=== PATIENT | female | born 1955 | race Hispanic/Latino ===

== ENCOUNTER 2018-04-15 16:31 | Emergency (ER) | payer OTHER ==
[2018-04-15 20:32] LABS: Absolute Lymphocytes (CBC) 0.9 K/uL (0.7-4.9); Absolute Neutrophil 3.6 K/uL (1.8-8.0); Basophils % 0.5 % (0-1.3); Eosinophils % 0.2 % (0-4.4); Hematocrit 40.5 % (36.0-45.0); Lymphocytes % 16.6 % (15.3-44.8); MCH 36.6 pg (27.0-35.0); MCV 105.3 fL (80-100); Monocytes % 17.9 % (3.3-12.3); RBC Red Blood Cell Count 3.84 M/uL (3.86-4.86)
[2018-04-15 20:40] LABS: BUN Blood Urea Nitrogen 12 mg/dL (7-18); Bicarbonate 26 mmol/L (21-32); Glucose Level 103 mg/dL (74-106); Potassium 3.9 mmol/L (3.5-5.1); Sodium Level 136 mmol/L (136-145)
[2018-04-15 20:56] LABS: Blood Morphology Comment NOTED (NOT SEEN); Macrocytosis 1+; Platelet Estimate ADEQ
--- NOTE | 2018-04-15 21:24 | ER ---
Nurse's Notes [facility] Name: Ryland Saez Age: 62 yrs Sex: Female : 1955 Arrival Date: 04/15/2018 Time: 16:36 Bed 24 Private MD: Out, [facility] Diagnosis: Hemorrhoids Presentation: 04/15 16:40 Presenting complaint: Patient states: Bright red blood from rectum after each bowel hb movent x 1 month. Transition of care: patient was not received from another setting of care. Onset of symptoms is unknown. Risk Assessment: Do you want to hurt yourself or someone else? Patient reports no desire to harm self or others. 16:40 Method Of Arrival: Ambulatory hb 16:40 Acuity: MARIN 3 hb 21:35 Initial Sepsis Screen: Does the patient meet any 2 criteria? No. Patient's initial rv sepsis screen is negative. Does the patient have a suspected source of infection? No. Patient's initial sepsis screen is negative. Care prior to arrival: None. Historical: - Allergies: 16:42 No Known Allergies; hb - Home Meds: 16:43 Diuril Oral [Active]; hb - PMHx: 16:43 Hypertension; hb - Immunization history:: Adult Immunizations up to date. - Social history:: Smoking status: Patient/guardian denies using tobacco. - Ebola Screening: : No symptoms or risks identified at this time. Screenin:49 Abuse screen: Denies threats or abuse. Denies injuries from another. Nutritional aj1 screening: No deficits noted. Tuberculosis screening: No symptoms or risk factors identified. 21:37 Fall Risk None identified. rv Assessment: 18:49 General: Appears in no apparent distress. comfortable, Behavior is calm, cooperative, aj1 appropriate for age. Pain: Denies pain. Neuro: Level of Consciousness is awake, alert, obeys commands. Cardiovascular: Patient's skin is warm and dry. Respiratory: Airway is patent Respiratory effort is even, unlabored, Respiratory pattern is regular, symmetrical. GI: Abdomen is flat, non-distended, Abd is soft and non tender X 4 quads. Reports rectal bleeding that she describes as light for the past several months. : No signs and/or symptoms were reported regarding the genitourinary system. EENT: No signs and/or symptoms were reported regarding the EENT system. Derm: No signs and/or symptoms reported regarding the dermatologic system. Skin is pink, warm \T\ dry. normal. Musculoskeletal: No signs and/or symptoms reported regarding the musculoskeletal system. Circulation, motion, and sensation intact. Vital Signs: 16:41 BP 187 / 97; Pulse 74; Resp 16; Temp 97.8; Pulse Ox 100% on R/A; Pain 2/10; hb ED Course: 16:36 Patient arrived in ED. sb2 16:36 Out, of Town is Private Physician. sb2 16:41 Triage completed. hb 16:43 Arm band placed on right wrist. hb 18:13 Elyssa Mazariegos, RN is Primary Nurse. aj1 18:29 Issac Mondragon NP is PHCP. pm1 18:29 Marcos Sanchez MD is Attending Physician. pm1 18:49 Patient has correct armband on for positive identification. Bed in low position. Call aj1 light in reach. Side rails up X 1. 18:49 No provider procedures requiring assistance completed. aj1 20:32 Initial lab(s) drawn, by me, sent to lab. rv 21:37 Patient did not have IV access during this emergency room visit. rv Administered Medications: No medications were administered Outcome: 21:24 Discharge ordered by . pm1 21:36 Discharged to home ambulatory. rv 21:36 Condition: good 21:36 Discharge instructions given to patient, Instructed on discharge instructions, follow up and referral plans. medication usage, Demonstrated understanding of instructions, follow-up care, medications, Prescriptions given X 2. 21:37 Patient left the ED. rv Signatures: Elyssa Mazariegos, ANDRADE RN aj Issac Mondragon NP NURSE INFORMATICIST pm1 Alexia Lopez RN RN Sandra Sheehan sb2 Jovon Murphy RN RN rv
--- NOTE | 2018-04-15 21:25 | EDPHYS ---
Physician Documentation [facility] Name: Ryland Young Age: 62 yrs Sex: Female : 1955 Arrival Date: 04/15/2018 Time: 16:36 Bed 24 Private MD: Out, [facility] ED Physician Marcos Sanchez HPI: 04/15 21:23 This 62 yrs old Female presents to ER via Ambulatory with complaints of Rectal pm1 Bleeding. 21:23 The patient presents to the emergency department with bleeding from the rectum/anus, pm1 that is mild. Onset: The symptoms/episode began/occurred 3 month(s) ago. Context: the patient traces of blood present on toilet paper with some bowel movements over the past 3 months. Modifying factors: The symptoms are alleviated by nothing, The symptoms are aggravated by bowel movement. Associate signs and symptoms: Pertinent negatives: abdominal pain, constipation, diarrhea, dysuria, fever, vomiting. The patient has not recently seen a physician. Patient denies any pain. Has blood on toilet paper with wiping after some of bowel movements over the past 3 months. No blood present on the stool or in the toilet. Patient denies any urinary symptoms. Patient was not concerned about the bleeding but came today because her sister wanted her to be evaluated. Historical: - Allergies: 16:42 No Known Allergies; hb - Home Meds: 16:43 Diuril Oral [Active]; hb - PMHx: 16:43 Hypertension; hb - Immunization history:: Adult Immunizations up to date. - Social history:: Smoking status: Patient/guardian denies using tobacco. - Ebola Screening: : No symptoms or risks identified at this time. ROS: 21:23 Constitutional: Negative for fever, chills, and weight loss, Eyes: Negative for injury, pm1 pain, redness, and discharge, ENT: Negative for injury, pain, and discharge, Neck: Negative for injury, pain, and swelling, Cardiovascular: Negative for chest pain, palpitations, and edema, Respiratory: Negative for shortness of breath, cough, wheezing, and pleuritic chest pain. 21:23 Back: Negative for injury and pain, : Negative for injury, bleeding, discharge, and swelling, MS/Extremity: Negative for injury and deformity, Skin: Negative for injury, rash, and discoloration, Neuro: Negative for headache, weakness, numbness, tingling, and seizure. 21:23 Abdomen/GI: Positive for rectal bleeding, Negative for abdominal pain, nausea, vomiting, and diarrhea, constipation, hematemesis, black/tarry stool, rectal pain. Exam: 19:00 Constitutional: This is a well developed, well nourished patient who is awake, alert, pm1 and in no acute distress. Head/Face: Normocephalic, atraumatic. Eyes: Pupils equal round and reactive to light, extra-ocular motions intact. Lids and lashes normal. Conjunctiva and sclera are non-icteric and not injected. Cornea within normal limits. Periorbital areas with no swelling, redness, or edema. ENT: Nares patent. No nasal discharge, no septal abnormalities noted. Tympanic membranes are normal and external auditory canals are clear. Oropharynx with no redness, swelling, or masses, exudates, or evidence of obstruction, uvula midline. Mucous membranes moist. Neck: Trachea midline, no thyromegaly or masses palpated, and no cervical lymphadenopathy. Supple, full range of motion without nuchal rigidity, or vertebral point tenderness. No Meningismus. Chest/axilla: Normal chest wall appearance and motion. Nontender with no deformity. No lesions are appreciated. Cardiovascular: Regular rate and rhythm with a normal S1 and S2. No gallops, murmurs, or rubs. Normal PMI, no JVD. No pulse deficits. Respiratory: Lungs have equal breath sounds bilaterally, clear to auscultation and percussion. No rales, rhonchi or wheezes noted. No increased work of breathing, no retractions or nasal flaring. 19:00 Back: No spinal tenderness. No costovertebral tenderness. Full range of motion. Skin: Warm, dry with normal turgor. Normal color with no rashes, no lesions, and no evidence of cellulitis. MS/ Extremity: Pulses equal, no cyanosis. Neurovascular intact. Full, normal range of motion. 19:00 Abdomen/GI: Inspection: abdomen appears normal, Bowel sounds: normal, Palpation: abdomen is soft and non-tender, Rectal exam: rectal tone normal, Stool: guaiac negative, hemorrhoid(s), external, with inflammation, with pain, without bleeding, without inflammation, without thrombosis, mass, is not appreciated, swelling, is not appreciated, Patty ZAFAR. 19:00 Neuro: Orientation: is normal, Motor: is normal, moves all fours, Sensation: is normal, no obvious gross deficits, Gait: is steady, at a normal pace, without difficulty. Vital Signs: 16:41 BP 187 / 97; Pulse 74; Resp 16; Temp 97.8; Pulse Ox 100% on R/A; Pain 2/10; hb MDM: 18:36 Patient medically screened. pm1 21:23 Data reviewed: vital signs. Data interpreted: Pulse oximetry: on room air is 100 %. pm1 Interpretation: normal. Counseling: I had a detailed discussion with the patient and/or guardian regarding: the historical points, exam findings, and any diagnostic results supporting the discharge/admit diagnosis, lab results, the need for outpatient follow up, to return to the emergency department if symptoms worsen or persist or if there are any questions or concerns that arise at home. 04/15 19:41 Order name: CBC with Diff; Complete Time: 21:23 [facility] 04/15 19:41 Order name: BMP; Complete Time: 21:23 [facility] 04/15 20:35 Order name: Manual Differential; Complete Time: 21:23 EDMN Administered Medications: No medications were administered Disposition: 04/15/18 21:24 Discharged to Home. Impression: Hemorrhoids. - Condition is Stable. - Discharge Instructions: Hemorrhoids. - Prescriptions for Anusol- HC 2.5 % Rectal Cream - Apply to affected area 1 application by TOPICAL route every 8 hours As needed; 30 gram. Colace 100 mg Oral Tablet - take 1 tablet by ORAL route every 12 hours; 14 tablet. - Medication Reconciliation Form, Thank You Letter, Antibiotic Education, Prescription Opioid Use form. - Follow up: Emergency Department; When: As needed; Reason: Worsening of condition. Follow up: Private Physician; When: 2 - 3 days; Reason: Recheck today's complaints, Continuance of care, Re-evaluation by your physician. - Problem is new. - Symptoms have improved. Signatures: Dispatcher [employer] [facility] Issac Mondragon, STUDENT TRUCK DRIVER STUDENT TRUCK DRIVER pm1 Alexia Lopez, ANDRADE RN Jovon Murphy RN RN rv Corrections: (The following items were deleted from the chart) 20:35 20:34 CBC Smear Scan ordered. [facility] EDMS 21:37 21:24 04/15/2018 21:24 Discharged to Home. Impression: Hemorrhoids. Condition is rv Stable. Forms are Medication Reconciliation Form, Thank You Letter, Antibiotic Education, Prescription Opioid Use. Follow up: Emergency Department; When: As needed; Reason: Worsening of condition. Follow up: Private Physician; When: 2 - 3 days; Reason: Recheck today's complaints, Continuance of care, Re-evaluation by your physician. Problem is new. Symptoms have improved. pm1
== END 2018-04-15 21:37 | disposition home or self-care (01) ==
LOC: ER 16:31
DX: K64.9 Unspecified hemorrhoids (principal); I10 Essential (primary) hypertension
CPT/HCPCS: 36415; 80048; 85025; 99283

== ENCOUNTER 2021-03-11 19:45 | Inpatient (IN) | payer OTHER ==
--- OUTSIDE RECORDS SUMMARY | 2021-03-11 19:52 | XMS REPORT | Continuity of Care Document ---
:1955 Author Organization [facility] t Address [address] [place] [address] Care Team Providers Name Role Phone Arroyo DO Attending Clinician Problems Condition Condition Condition Status Onset Resolution Last Treating Co mments Source Name Details Category Date Date Treatment Clinician Date Osteopenia Osteopenia Problem Active [facility] 5-07 Family 00:00: Practic 00 e Liver Liver Problem Active [facility] function Function 1-08 Family tests Tests 00:00: Practic abnormal Abnormal 00 e Gastroesop Gastroesop Problem Active 2015-07 [facility] hageal hageal 117 Family reflux Reflux 00:00: Practic disease Disease 00 e Elevated Elevated Problem Active 2015-07 [facility] liver Liver 17 Family enzymes Enzymes 00:00: Practic level Level 00 e Hypertensi Hypertensi Problem Active 2014-07 [facility] ve ve 1-16 Family disorder Disorder 00:00: Practi c 00 e Mixed Mixed Problem Active [facility] hyperlipid Hyperlipid 3-12 Fa jeannine emia emia 00:00: Practic 00 e Allergic Allergic Problem Active [facility] rhinitis Rhinitis 08 Family 00:00: Practic 00 e Allergies, Adverse Reactions, Alerts This patient has no known allergies or adverse reactions. Social History Smoking Status Start Date Stop Date Source Former Smoker [place] [facility] [place] Medications Ordered Filled Start Stop Current Ordering Indication Dosage Frequency Signature Comments Components Source Medication Medication Date Date Medication? Clinician (SIG) Name Name escitalopra escitalopra No 1 Q1D escitalopr [place] m 20 mg m 20 mg am 20 mg Famil y tablet Take tablet Take tablet Practic 1 tablet 1 tablet Take 1 e every day every day tablet by oral by oral every day route for route for by oral 90 days. 90 days. route for 90 days. lisinopril lisinopril No lisinopril [facility] 10 mg 10 mg 10 mg Family tablet TAKE tablet TAKE tablet Practic 1 TABLET BY 1 TABLET BY TAKE 1 e MOUTH EVERY MOUTH EVERY TABLET BY DAY DAY MOUTH EVERY DAY Immunizations Ordered Immunization Filled Immunization Date Status Commen ts Source Name Name influenza, seasonal, influenza, seasonal, 2015-04-19 Completed [facility] injectable injectable 00:00:00 Practice influenza, influenza, 2015-04-14 Completed [facility] injectable, injectable, 00:00:00 Practice quadrivalent quadrivalent influenza, influenza, 2014-05-13 Completed [facility] injectable, injectable, 00:00:00 Practice quadrivalent, quadrivalent, preservative free preservative free Tdap Tdap 2014-05-13 Completed [facility] 00:00:00 Practice zoster zoster 2014-05-13 Completed [facility] 00:00:00 Practice Vital Signs Vital Name Observation Time Observation Value Comments Source BP Diastolic 2019-01-21 00:00:00 77 mm[Hg] [facility] Practice Height 2019-01-21 00:00:00 61 [in_i] [facility] Practice BMI (Body Mass 2019-01-21 00:00:00 16.5 kg/m2 [facility] Family Index) Practice BP Systolic 2019-01-21 00:00:00 113 mm[Hg] [facility] Body Weight 2019-01-21 00:00:00 87.2 [lb_av] [facility] Practice BP Diastolic 2018-12-05 00:00:00 64 mm[Hg] [facility] Practice Height 2018-12-05 00:00:00 61 [in_i] [facility] Practice BMI (Body Mass 2018-12-05 00:00:00 15.1 kg/m2 [facility] Family Index) Practice BP Systolic 2018-12-05 00:00:00 109 mm[Hg] [facility] Practice Body Weight 2018-12-05 00:00:00 80 [lb_av] [facility] Practice BP Diastolic 2018-12-02 00:00:00 74 mm[Hg] [facility] Height 2018-12-02 00:00:00 61 [in_i] [facility] Practice BMI (Body Mass 2018-12-02 00:00:00 15.2 kg/m2 [facility]) Practice BP Systolic 2018-12-02 00:00:00 114 mm[Hg] [facility] Body Weight 2018-12-02 00:00:00 80.2 [lb_av] [facility] Practice BP Diastolic 2018-09-05 00:00:00 74 mm[Hg] [facility] Practice Height 2018-09-05 00:00:00 61 [in_i] [facility] Practice BMI (Body Mass 2018-09-05 00:00:00 17.6 kg/m2 [facility] BP Systolic 2018-09-05 00:00:00 110 mm[Hg] [facility] Body Weight 2018-09-05 00:00:00 93 [lb_av] [facility] BP Diastolic 2018-08-28 00:00:00 81 mm[Hg] [facility] Height 2018-08-28 00:00:00 61 [in_i] [facility] BMI (Body Mass 2018-08-28 00:00:00 18.1 kg/m2 [facility] BP Systolic 2018-08-28 00:00:00 118 mm[Hg] [facility] Body Weight 2018-08-28 00:00:00 96 [lb_av] [facility] Procedures Procedure Date / Time Performed Performing Clinician [facility] e US, ABDOMINAL COMPLETE 2018-08-29 00:00:00 [facility] Hysterectomy (Total) 2011-11-11 00:00:00 [facility] Colonoscopy 2008-07-16 00:00:00 [facility] Hysterectomy (Partial) [facility] Breast Surgery [facility] Tonsillectomy [facility] Encounters Start End Encounter Admission Attending Care Care Encounter Source Date/Time Date/Time Type Type Clinicians Facility Department ID 2020-04-11 2020-04-11 Emergency [place], [facility] [id number] 19:27:00 22:35:00 Dawson Ibarra [id number] A[place] [id number] [place] [id number] 2019-01-21 2019-01-21 Hernandez Gee P [place] - [id number] [facility] 00:00:00 00:00:00 MD Martinez: [facility] [address] Practice [address], [facility] [address] , Ph. 2018-12-05 2018-12-05 [facility] [place] - [id number] [place] 00:00:00 00:00:00 Morgan Brizuela MD: Practi c [address] [facility] [place], [facility] [address], [place] [address] , Ph. 2018-12-02 2018-12-02 [facility] [place] - [id number] [place] 00:00:00 00:00:00 Morgan Brizuela MD: Practi c [address] - e [facility], [facility] [address], [place] [address] , Ph. 2018-11-24 2018-11-24 Emergency E [facility] [address] [facility] 16:10:00 16:10:00 [facility] 2018-09-05 2018-09-05 Paris Garcia [facility] [place] - [id number] V illage 00:00:00 00:00:00 MD Rashid: Jassi Kirkpatrick ly [address] [facility], [address], [facility] [address] , Ph. 2018-08-28 2018-08-28 Paris Garcia [facility] [place] - [id number] V illage 00:00:00 00:00:00 MD Rashid: [facility] Kaya ly [address] [facility], [address], [facility] [address] , Ph. Results Test Description Test Time Test Comments Results Result Comments Source CBC W Auto Differential panel - Blood 2018-08-29 12:05:00 Test Item Value Reference Range Interpretation Comme nts WBC (test code = WBC) 7.05 x10*3/?L 3.98-10.04 RBC (test code = RBC) 3.55 10*12/L 3.93-5.22 L hemoglobin (test code = hemoglobin) 13.20 g/dL 11.20-15.70 hematocrit (test code = hematocrit) 38.1 % 34.1-44.9 MCV (test code = MCV) 107.3 fL 80.0-100.0 H MCH (test code = MCH) 37.2 pg 25.6-32.2 H MCHC (test code = MCHC) 34.6 g/dL 32.2-35.5 RDW-SD (test code = RDW-SD) 47.7 fL 36.4-46.3 H platelet count (test code = platelet count) 319.0 k/uL 182.0-369. 0 MPV (test code = MPV) 10.7 fL 7.5-11.5 neut% (test code = neut%) 67.7 % 34.0-71.1 lymph% (test code = lymph%) 15.5 % 19.3-51.7 L mon% (test code = mon%) 16.3 % 4.7-12.5 H eos% (test code = eos%) 0.1 % 0.7-5.8 L baso% (test code = baso%) 0.4 % 0.1-1.2 neut# (test code = neut#) 4.8 x10*3/?L 1.6-6.1 lymph# (test code = lymph#) 1.1 x10*3/?L 1.2-3.7 L mon# (test code = mon#) 1.2 x10*3/?L 0.2-0.9 H eos# (test code = eos#) 0.01 x10*3/?L 0.04-0.36 L baso# (test code = baso#) 0.03 x10*3/?L 0.01-0.08 [facility] - Serum or Plasma 2018-08-29 11:53:00 Test Item Value Reference Range Interpretation Comments ALT (test code = ALT) 106 U/L 0-55 H AST (test code = AST) 133 U/L 5-34 H BUN (test code = BUN) 10.5 mg/dL 9.8-20.1 alk phos (test code = alk phos) 73 unit/L 40-150 glucose (test code = glucose) 92 mg/dL 70-99 albumin (test code = albumin) 4.0 g/dL 3.5-5.0 creatinine (test code = 0.68 mg/dL 0.57-1.11 creatinine) eGFR non- (test >60 code = eGFR non-) total bilirubin (test code = 1.7 mg/dL 0.2-1.2 H total bilirubin) eGFR - (test >60 code = eGFR - ) sodium (test code = sodium) 135 mEq/L 136-145 L potassium (test code = potassium) 4.3 mEq/L 3.5-5.1 chloride (test code = chloride) 96 mmol/L 98-107 L total protein (test code = total 7.4 g/dL 6.4-8.3 protein) calcium (test code = calcium) 10.1 mg/dL 8.4-10.2 CO2 (test code = CO2) 24.6 mmol/L 23.0-31.0 anion gap (test code = anion gap) 14 calc [facility]Units/volume] in Serum or [id number] 11:47:00 Test Item Value Reference Range Interpretation Comments TSH (test code = TSH) 2.354 uIU/mL 0.350-4.940 [facility]
--- NOTE | 2021-03-11 20:27 | RAD REPORT ---
EXAM DESCRIPTION: RAD - Shoulder Right 2 View - 03/11/2021 8:19 pm CLINICAL HISTORY: Right shoulder pain FINDINGS: Moderately displaced right humeral neck fracture extends to the lateral aspect of humeral head. No dislocation
--- NOTE | 2021-03-11 20:28 | RAD REPORT ---
EXAM DESCRIPTION: RAD - Humerus Right - 03/11/2021 8:19 pm CLINICAL HISTORY: Right arm pain status post fall FINDINGS: Moderately displaced right humeral neck fracture extends to the lateral aspect of humeral head. No dislocation
--- NOTE | 2021-03-11 20:32 | RAD REPORT ---
EXAM DESCRIPTION: RAD - Hip Right 2 View - 03/11/2021 8:19 pm CLINICAL HISTORY: Right hip pain FINDINGS: Mildly to moderately displaced intertrochanteric/greater trochanteric fracture right femur. No dislocation
--- NOTE | 2021-03-11 20:32 | RAD REPORT ---
EXAM DESCRIPTION: RAD - Pelvis - 03/11/2021 8:19 pm CLINICAL HISTORY: Pelvic pain status post injury FINDINGS: Mildly to moderately displaced intertrochanteric/greater trochanteric fracture right femur . No dislocation
[2021-03-11 20:42] LABS: Absolute Lymphocytes (CBC) 0.5 K/uL (0.7-4.9); Basophils % 0.2 % (0-1.3); Hematocrit 33.6 % (36.0-45.0); Lymphocytes % 4.6 % (15.3-44.8); MPV 7.4 fL (7.6-11.3); RBC Red Blood Cell Count 3.03 M/uL (3.86-4.86)
[2021-03-11 20:46] LABS: Protime INR 1.04
--- NOTE | 2021-03-11 20:58 | EDPHYS ---
Physician Documentation [facility] Name: Ryland Saez Age: 65 yrs Sex: Female : 1955 Arrival Date: 03/11/2021 Time: 19:50 Bed 24 Private MD: ED Physician Víctor Bernard HPI: 03/11 19:58 This 65 yrs old Female presents to ER via EMS with complaints of Fall Injury. rn 19:58 Onset: The symptoms/episode began/occurred this morning. Associated injuries: The rn patient sustained Right arm and right leg. Severity of symptoms: At their worst the symptoms were moderate, in the emergency department the symptoms are unchanged. The patient has not experienced similar symptoms in the past. The patient has not recently seen a physician. Patient reports thinks fell this morning, does not recall details of fall. States woke up around 930 and thinks fell around that time. Thinks possibly hit foot board of bed. States difficulty getting up and walking after the fall due to pain in the leg and pain in the right arm. Does not take any blood thinners. Had to call family member over to help her.. Historical: - Allergies: 20:02 No Known Allergies; vg1 - Home Meds: 20:02 escitalopram oxalate oral [Active]; Lexapro Oral [Active]; Metoprolol Tartrate Oral vg1 [Active]; - PMHx: 20:02 Hypertension; Depressive disorder; vg1 - Immunization history:: Adult Immunizations up to date, Client reports receiving the 2nd dose of the Covid vaccine. - Family history:: not pertinent. - Social history:: Smoking status: Patient denies any tobacco usage or history of. - Hospitalizations: : No recent hospitalization is reported. ROS: 20:00 Constitutional: Negative for fever, chills, and weight loss, Eyes: Negative for injury, rn pain, redness, and discharge, Neck: Negative for injury, pain, and swelling, Cardiovascular: Negative for chest pain, palpitations, and edema, Respiratory: Negative for shortness of breath, cough, wheezing, and pleuritic chest pain, Abdomen/GI: Negative for abdominal pain, nausea, vomiting, diarrhea, and constipation, Back: Negative for injury and pain, : Negative for injury, bleeding, discharge, and swelling, MS/Extremity: Positive for injury and pain to right arm and right leg Skin: Positive for bruising to right upper arm Neuro: Negative for headache, weakness, numbness, tingling, and seizure. 20:00 All other systems are negative. Exam: 20:01 Constitutional: This is a well developed, well nourished patient who is awake, alert, rn appears uncomfortable Head/Face: Normocephalic, atraumatic. Eyes: Pupils equal round and reactive to light, extra-ocular motions intact. Lids and lashes normal. Conjunctiva and sclera are non-icteric and not injected. Cornea within normal limits. Periorbital areas with no swelling, redness, or edema. Neck: No midline cervical tenderness Chest/axilla: Normal chest wall appearance and motion. Nontender with no deformity. No lesions are appreciated. Cardiovascular: Regular rate and rhythm. No pulse deficits. Respiratory: No increased work of breathing, no retractions or nasal flaring. Abdomen/GI: Soft, nontender, nondistended Back: No spinal tenderness. No costovertebral tenderness. Full range of motion. Skin: Warm, dry with normal turgor. Normal color with no rashes, no lesions, and no evidence of cellulitis. MS/ Extremity: Pulses equal, no cyanosis. Moderate swelling and ecchymosis right proximal humerus with painful range of motion of right shoulder. Moderate pain with range of motion of right hip with tenderness along proximal femur and hip, right lower extremity externally rotated and patient not moving it due to pain. Free range of motion left leg and hip without obvious pain. Neuro: Awake and alert, GCS 15, oriented to person, place, time, and situation. Cranial nerves II-XII grossly intact. Motor strength 5/5 in all extremities. Sensory grossly intact. Cerebellar exam normal. Normal gait. Vital Signs: 19:40 BP 165 / 95; Pulse 95; Resp 20; Temp 98.3; Pulse Ox 100% ; Weight 49.9 kg; Height 5 ft. vg1 1 in. (154.94 cm); Pain 10/10; 20:40 BP 160 / 92; Pulse 98; Resp 16; Pulse Ox 98% on R/A; vg1 19:40 Body Mass Index 20.78 (49.90 kg, 154.94 cm) vg1 Allison Coma Score: 19:40 Eye Response: spontaneous(4). Verbal Response: oriented(5). Motor Response: obeys vg1 commands(6). Total: 15. Trauma Score (Adult): 19:40 Eye Response: spontaneous(1); Verbal Response: oriented(1); Motor Response: obeys vg1 commands(2); Systolic BP: > 89 mm Hg(4); Respiratory Rate: 10 to 29 per min(4); Allison Score: 15; Trauma Score: 12 MDM: 19:50 Patient medically screened. rn 20:49 Differential diagnosis: closed head injury, contusion, fracture, sprain, strain. rn 20:55 Data reviewed: vital signs, nurses notes, lab test result(s), EKG, radiologic studies, rn plain films, and as a result, I will admit patient. Data interpreted: shelter monitor: rate is 98 beats/min, rhythm is normal sinus rhythm, regular, with no ectopy, Interpretation: normal rate, normal rhythm, Pulse oximetry: on room air is 98 %. Interpretation: normal. Test interpretation: by ED physician or midlevel provider: plain radiologic studies, X-ray of right humerus shows proximal humeral fracture. X-ray of right hip shows intertrochanteric fracture of right femur. Counseling: I had a detailed discussion with the patient and/or guardian regarding: the historical points, exam findings, and any diagnostic results supporting the discharge/admit diagnosis, lab results, radiology results, the need for further work-up and treatment in the hospital. Response to treatment: the patient's symptoms have mildly improved after treatment, and as a result, I will admit patient. Admission orders: after a detailed discussion of the patient's condition and case, the admit orders are written by me. ED course: Patient with right proximal humeral fracture, placed in a shoulder immobilizer. Also with right intertrochanteric femur fracture. Will admit for femur fracture. Consulted with Dr. Downing.. 03/11 19:52 Order name: CBC with Diff; Complete Time: :55 rn 03/11 19:52 Order name: Basic Metabolic Panel; Complete Time: :55 rn 03/11 19:52 Order name: Protime (+inr); Complete Time: 21:55 rn 03/11 19:52 Order name: Ptt, Activated; Complete Time: : rn 03/11 21:40 Order name: CBC Smear Scan; Complete Time: 21:55 EDMS 08/27 19:52 Order name: XRAY Hip RIGHT 2 view; Complete Time: 21:55 rn 03/11 19:52 Order name: XRAY Shoulder RIGHT 2 view; Complete Time: 20:29 rn 03/11 19:52 Order name: XRAY Humerus RIGHT; Complete Time: 20:29 rn 03/11 19:52 Order name: CT Head Brain wo Cont; Complete Time: 21:55 rn 03/11 19:52 Order name: XRAY Pelvis; Complete Time: 21:55 rn 03/11 21:48 Order name: SARS-COV-2 RT PCR; Complete Time: 21:55 EDMS 03/11 19:52 Order name: IV Start; Complete Time: 20:10 rn 03/11 19:52 Order name: EKG; Complete Time: 19:53 rn 03/11 19:52 Order name: EKG - Nurse/Tech rn 03/11 19:52 Order name: NPO; Complete Time: 20:09 rn 03/11 20:30 Order name: Shoulder Immobilizer; Complete Time: 23:04 rn Administered Medications: 20:40 Drug: Zofran (Ondansetron) 4 mg Route: IVP; Site: left antecubital; vg1 20:42 Drug: morphine 2 mg Route: IVP; Site: left antecubital; vg1 Disposition Summary: 03/11/21 20:57 Hospitalization Ordered Hospitalization Status: Inpatient Admission rn Provider: Marlen Abdi rn Location: Telemetry/MedSurg (Inpatient) rn Condition: Stable rn Problem: new rn Symptoms: have improved rn Bed/Room Type: Standard rn Room Assignment: [facility](03/11/21 22:09) Diagnosis - Displaced intertrochanteric fracture of right femur rn - Fracture of upper end of humerus - right humerus rn Forms: - Medication Reconciliation Form rn - SBAR form rn Signatures: Dispatcher [employer] EDOH Maranda Suero RN RN Víctor Rodriguez MD MD rn Garcia, Victoria RN RN vg1 Corrections: (The following items were deleted from the chart) 20:50 19:53 CORONAVIRUS+ ordered. EDOH EDMS 22:09 20:57 rn rylie
--- NOTE | 2021-03-11 20:58 | ER ---
Nurse's Notes [facility] Name: Ryland Young Age: 65 yrs Sex: Female : 1955 Arrival Date: 03/11/2021 Time: 19:50 Bed 24 Private MD: Diagnosis: Displaced intertrochanteric fracture of right femur;Fracture of upper end of humerus-right humerus Presentation: 03/11 19:50 Chief complaint: EMS states: Pt lives at home, family was concerned about pt because vg1 they had not heard from here since 10am. EMS was called out and found pt on the living room floor. Pt stated last thing remembers was walking from her bedroom to living room. Pt may have fallen around 0930. Pt present with limited ROM in Right shoulder, Right elbow and Right hip. Care prior to arrival: Placed on backboard. IV initiated. 20 GA, in the left antecubital area. Mechanism of Injury: Fall from standing position. Trauma event details: Injury occurred in the [facility] [place], Injury occurred: at home. Injury occurred: March 11, 2021 Injury occurred at: 09:30. 19:50 Acuity: MARIN 3 vg1 19:50 Method Of Arrival: EMS: [facility] vg1 Historical: - Allergies: 20:02 No Known Allergies; vg1 - Home Meds: 20:02 escitalopram oxalate oral [Active]; Lexapro Oral [Active]; Metoprolol Tartrate Oral vg1 [Active]; - PMHx: 20:02 Hypertension; Depressive disorder; vg1 - Immunization history:: Adult Immunizations up to date, Client reports receiving the 2nd dose of the Covid vaccine. - Family history:: not pertinent. - Social history:: Smoking status: Patient denies any tobacco usage or history of. - Hospitalizations: : No recent hospitalization is reported. Screenin:40 Abuse screen: Denies threats or abuse. Tuberculosis screening: No symptoms or risk vg1 factors identified. 20:02 Nutritional screening: No deficits noted. Fall Risk Fall in past 12 months (25 points). vg1 No secondary diagnosis (0 pts). IV access (20 points). Ambulatory Aid- None/Bed Rest/Nurse Assist (0 pts). Gait- Impaired (20 pts.). Mental Status- Oriented to own ability (0 pts). Total Gibson Fall Scale indicates High Risk Score (45 or more points). Fall prevention measures have been instituted. Side Rails Up X 2 Placed Close to Nursing Station. Primary Survey: 19:40 NO uncontrolled hemorrhage observed. Breathing/Chest: Respiratory pattern: regular, vg1 Respiratory effort: spontaneous, Breath sounds: clear, bilaterally. Chest inspection: symmetrical rise and fall of the chest. Circulation: Cardiac rhythm: sinus rhythm Pulses: palpable right radial artery, right dorsalis pedis artery, left radial artery and left dorsalis pedis artery. Skin temperature: warm. Disability Alert. Exposure/Environment: There is no evidence of uncontrolled external bleeding. A warming method has been applied: A warm blanket has been provided to the patient. Secondary Survey: 19:40 HEENT: No deficits noted. Gastrointestinal: No deficits noted. Abdomen is soft, flat, vg1 Palpation No deficit noted. : No signs and/or symptoms were reported regarding the genitourinary system. Musculoskeletal: Range of motion: limited in right shoulder, right elbow and right hip Swelling present in Right bicep. Assessment: 19:40 General: Appears in no apparent distress. uncomfortable, Behavior is calm, cooperative. vg1 Pain: Complains of pain in Right shoulder and Right hip Pain currently is 10 out of 10 on a pain scale. Pain began approximately 0930. Neuro: Level of Consciousness is awake, alert, obeys commands, Oriented to person, place, time, situation. EENT: No signs and/or symptoms were reported regarding the EENT system. Cardiovascular: Patient's skin is warm and dry. Pulses are palpable in right radial artery, right dorsalis pedis artery and left dorsalis pedis artery. Respiratory: Airway is patent Respiratory effort is even, unlabored. GI: No signs and/or symptoms were reported involving the gastrointestinal system. : No signs and/or symptoms were reported regarding the genitourinary system. Derm: Bruising that is dark purple, on Right shoulder, Right bicep. Musculoskeletal: Range of motion: limited in right shoulder, right elbow and right hip Swelling present in Right bicep. 20:47 Reassessment: Patient appears in no apparent distress at this time. Patient and/or vg1 family updated on plan of care and expected duration. Pain level reassessed. Patient is alert, oriented x 3, equal unlabored respirations, skin warm/dry/pink. Pt is aware of place, , name, and year but is asking repetitive questions of why she is in the hospital and how she got here. Explained to pt of reason for being here and was brought in by EMS. Pt then stated 'oh yes I remember now, but I dont remember falling.' Provider notified. Vital Signs: 19:40 BP 165 / 95; Pulse 95; Resp 20; Temp 98.3; Pulse Ox 100% ; Weight 49.9 kg; Height 5 ft. vg1 1 in. (154.94 cm); Pain 10/10; 20:40 BP 160 / 92; Pulse 98; Resp 16; Pulse Ox 98% on R/A; vg1 19:40 Body Mass Index 20.78 (49.90 kg, 154.94 cm) vg1 Fletcher Coma Score: 19:40 Eye Response: spontaneous(4). Verbal Response: oriented(5). Motor Response: obeys vg1 commands(6). Total: 15. Trauma Score (Adult): 19:40 Eye Response: spontaneous(1); Verbal Response: oriented(1); Motor Response: obeys vg1 commands(2); Systolic BP: > 89 mm Hg(4); Respiratory Rate: 10 to 29 per min(4); Shoshana Score: 15; Trauma Score: 12 ED Course: 19:40 Patient has correct armband on for positive identification. Bed in low position. Call vg1 light in reach. Side rails up X2. Patient maintains SpO2 saturation greater than 95% on room air. 19:40 Patient maintains SpO2 saturation greater than 95% on room air. vg1 19:50 Patient arrived in ED. vg1 19:50 Víctor Bernard MD is Attending Physician. rn 19:55 Triage completed. vg1 20:02 No provider procedures requiring assistance completed. vg1 20:19 XRAY Hip RIGHT 2 view In Process Unspecified. EDMS 20:19 XRAY Shoulder RIGHT 2 view In Process Unspecified. EDMS 20:19 XRAY Humerus RIGHT In Process Unspecified. EDMS 20:19 XRAY Pelvis In Process Unspecified. EDMS 20:24 Debbie Anaya, RN is Primary Nurse. vg1 20:25 Initial lab(s) drawn, by me, sent to lab. Maintain EMS IV. Dressing intact. Good blood vg1 return noted. Site clean \T\ dry. Gauge \T\ site: 20 L AC. 20:46 COVID swab sent to lab. vg1 20:57 Marlen Abdi MD is Hospitalizing Provider. rn 21:21 Report given to [place] ZAFAR. vg1 22:59 Diop cath inserted, using sterile technique, 18 Fr., by ma, balloon inflated, to lh3 gravity drainage, clamped. urine specimen collected. Administered Medications: 20:40 Drug: Zofran (Ondansetron) 4 mg Route: IVP; Site: left antecubital; vg1 20:42 Drug: morphine 2 mg Route: IVP; Site: left antecubital; vg1 Outcome: 20:57 Decision to Hospitalize by Provider. rn 03/12 01:35 Patient left the ED. 3 Signatures: Dispatcher [employer] Víctor Beltran MD MD rn Garcia, Debbie RN RN 1 [place] Perez RN RN 3 Corrections: (The following items were deleted from the chart) 03/11 20:37 20:03 In radiology for Head Brain Wo Cont+CT.[email or web address]. YUMIKO zb
[2021-03-11] MEDS ORDERED: ONDANSETRON 4 MG/2 ML VIAL ONE (21:00)
[2021-03-11] MEDS ORDERED: MORPHINE 2 MG/ML SYR ONE (21:00)
[2021-03-11 21:14] LABS: BUN Blood Urea Nitrogen 8 mg/dL (7-18); Bicarbonate 23 mmol/L (21-32); Glucose Level 124 mg/dL (74-106); Potassium 3.4 mmol/L (3.5-5.1); Sodium Level 136 mmol/L (136-145)
--- NOTE | 2021-03-11 21:33 | RAD REPORT ---
EXAM DESCRIPTION: CT - Head Brain Wo Cont - 03/11/2021 8:03 pm CLINICAL HISTORY: Head injury status post fall. Alteration of awareness/confusion COMPARISON: 2019 TECHNIQUE: Computed axial tomography of the head was obtained. IV contrast was not requested. All CT scans are performed using dose optimization technique as appropriate and may include automated exposure control or mA/KV adjustment according to patient size. FINDINGS: An intracranial bleed is not seen . The ventricles are normal in caliber. No extra-axial fluid collection is noted. Mild cerebral atrophy Mild low-density areas within periventricular, deep and subcortical white matter likely represent is chemic changes secondary to small vessel disease. Fluid within the sinuses/ mastoids is not seen. IMPRESSION: No acute intracranial abnormality is seen. If patient's symptoms persist MRI of the bra in would be recommended.
[2021-03-11 21:40] LABS: Blood Morphology Comment NOTED (NOT SEEN); Macrocytosis 2+; Platelet Estimate ADEQ; White Blood Cell Scan OK (OK)
[2021-03-12] MEDS ORDERED: ONDANSETRON 4 MG/2 ML VIAL IV PRN (01:10)
[2021-03-12] MEDS ORDERED: MORPHINE 2 MG/ML SYR IV PRN ×2 (01:10→17:34)
[2021-03-12 01:24] VITALS: BMI 20.7
[2021-03-12] MEDS: D5.45NS W/KCL 20MEQ 1,000 ML IV SCH ×3 (01:30→22:12)
[2021-03-12 04:32] LABS: Basophils % 0.3 % (0-1.3); Hematocrit 31.2 % (36.0-45.0); Lymphocytes % 12.9 % (15.3-44.8); MPV 8.2 fL (7.6-11.3); RBC Red Blood Cell Count 2.79 M/uL (3.86-4.86)
[2021-03-12 04:37] LABS: BUN Blood Urea Nitrogen 9 mg/dL (7-18); Bicarbonate 25 mmol/L (21-32); Glucose Level 127 mg/dL (74-106); Potassium 3.8 mmol/L (3.5-5.1); Sodium Level 137 mmol/L (136-145)
[2021-03-12] MEDS ORDERED: TRANEXAMIC ACID 1,000 MG in NA CHLORIDE 0.9% 50 ML IV ONE ×4 (11:00)
[2021-03-12] MEDS ORDERED: Ringers Lactate 1,000 ML IV ONE (14:05)
--- NOTE | 2021-03-12 14:54 | CON ---
Date of Consultation: 03/12/2021 Reason For Consultation: Right hip and right shoulder pain. History Of Present Illness: Ms. Saez is a 65-year-old female, who presented to the ER yesterday aft er sustaining a fall onto her right side. She was brought to the emergency room and had x-rays, whic h demonstrated a right proximal humerus fracture as well as a right intertrochanteric femur fracture. She reports no other musculoskeletal complaints at this time. Review of Systems: As above, otherwise negative. Past Medical History: Includes hypertension, depressive disorder. Home Medications: Includes Lexapro, metoprolol, and escitalopram. Allergies: NO KNOWN DRUG ALLERGIES. Social History: Denies tobacco use. Physical Examination: General: No apparent distress. HEENT: Normocephalic, atraumatic. Neck: Supple. Cardiovascular: Brisk cap refill to all digits. Chest: Nonlabored breathing. Abdomen: Nondistended. Psychiatric: Response to exam. Musculoskeletal: Right upper extremity, pain with range of motion of the right shoulder. Tenderness to palpation with right shoulder, mild ecchymosis over the right shoulder. 2+ radial pulse. Positi ve firing of EPL, FPL, and intrinsics in the right upper extremity. Left upper extremity, functional range of motion without pain. No gross deformities. No obvious dislocations. Left lower extremity , functional range of motion without pain. No gross deformities. No obvious dislocations. Right lo wer extremity, pain with range of motion. Right hip tenderness to palpation of the right hip. No te nderness to palpation over the knee, tibia, or ankle. Positive firing of EHL, FHL, gastrocsoleus com plex, tibialis anterior. Sensation is grossly intact to the dorsal and plantar surface of her foot. X-rays: X-rays of the right shoulder demonstrate a displaced right proximal humerus fracture. X-rays of the right hip demonstrate a displaced right intertrochanteric femur fracture. Assessment And Plan: Ms. Saez is a 65-year-old female with a right intertrochanteric femur fracture and a right proximal humerus fracture. I discussed with the patient at length the diagnosis as well as treatment plan. We will proceed with closed treatment for her right shoulder. She will remain i n a shoulder sling and allow for healing. Once adequate healing has taken place, we will proceed wit physical therapy. Given her displaced nature of her intertrochanteric femur fracture, we will proc eed with surgical fixation with intramedullary nailing. I discussed with the patient at length risks and benefits associated with the procedure and expressed understanding. We will proceed with surgic al fixation later today and she will be admitted to the floor postoperatively and physical therapy wi ll be consulted to aid with mobilization. CODY/EVITA Voice ID: [id number] Report ID: [id number]
[2021-03-12] MEDS ORDERED: CEFAZOLIN/SWI 1gm 1 GM/10 ML SYR ONE (15:02)
[2021-03-12] MEDS ORDERED: FENTANYL CITR 100 MCG/2 ML ONE (15:27)
[2021-03-12] MEDS ORDERED: propofoL 200 MG/20 ML VIAL IV ONE (15:27)
[2021-03-12] MEDS ORDERED: LIDOCAINE 1% MPF 5 ML VIAL ONE (15:28)
[2021-03-12] MEDS ORDERED: MIDAZOLAM HCL 2 MG/2 ML INJ ONE (15:28)
[2021-03-12] MEDS ORDERED: ONDANSETRON 4 MG/2 ML VIAL ONE (15:29)
[2021-03-12] MEDS ORDERED: KETOROLAC 30 MG/ML INJ ONE (15:29)
[2021-03-12] MEDS ORDERED: dexAMETHasone 10 MG/ML VIAL ONE (16:01)
--- NOTE | 2021-03-12 17:28 | P.BOP ---
Preoperative diagnosis: right intertrochanteric femur fracture Postoperative diagnosis: same Primary procedure: cephallomedullary fixation of right intertrochanteric femur fracture Childcare Administrator: NONE,NONE Estimated blood loss: 100 cc Specimen: none Findings: see dictation Anesthesia: General Complications: None Drain(s): Urinary catheter Implants: [id number] [employer] Affixus nail, 80 mm lag screw Fluids & blood products: per anesthesia record Transferred to: Recovery Room Condition: Good
[2021-03-12] MEDS ORDERED: DOCUSATE NA 100 MG CAP PO PRN (17:34)
[2021-03-12] MEDS ORDERED: CEFAZOLIN/NS 1gm 1 GM/50 ML BAG IVPB SCH (18:00)
--- NOTE | 2021-03-12 18:04 | RAD REPORT ---
EXAM DESCRIPTION: RAD - Hip Right 2 View - 03/12/2021 5:50 pm CLINICAL HISTORY: postop COMPARISON: Hip Right 2 View dated 03/11/2021 FINDINGS: A right proximal femoral nail placed. Skin angel are seen laterally. No unexpected posto perative finding.
[2021-03-12 18:49] LABS: Hematocrit 29.4 % (36.0-45.0)
--- NOTE | 2021-03-12 20:44 | RAD REPORT ---
EXAM DESCRIPTION: RAD - Hip In Or - 03/12/2021 8:06 pm CLINICAL HISTORY: RT NAILING COMPARISON: Pelvis dated 03/11/2021 FINDINGS: Fluoroscopy time 0.7 minutes.
--- NOTE | 2021-03-12 21:54 | HP ---
Date of Admission: 03/12/2021 Chief Complaint: Fall and hip pain and arm pain. History Of Present Illness: This is a 65-year-old female patient who lives at home by herself, lost her balance and fell down at home. She was brought into emergency room after she was evaluated. She was admitted to the hospital with hip fracture and humerus fracture. She denies any other problems at this point. Allergies: NO KNOWN ALLERGIES. Medications: According to last office visit from May 13, 2020, patient is on Benadryl 25 mg at bedtime, escitalopram 20 mg daily. Metoprolol tartrate 25 mg, takes half a tablet 2 times a day. Naltrexone 50 mg daily. I am not sure if she is still taking these last medications or not. The patient has not been compliant with her office visit and as instructed, to come back to see me for followup. She never returned back for followup in 3 months after the last visit. Review of Systems: Musculoskeletal: As mentioned above. All other systems reviewed and negative. Social History: Prior history of smoking, not at present time. The patient has a longstanding history of alcohol use and she drinks few times a week. In the past, she has had history of heavy alcohol use but lately she says she only drinks every other day or so and maybe up to 2 glasses of wine, but in the past, she was drinking more than 2 glasses of wine few times a week. Her last alcohol use was 2 days ago as she reports. Family History: Father , had heart disease, hypertension, and stroke. Mother , had Alzheimer disease, stroke, COPD. Brother , had unknown type of cancer and 1 sister , had cervical cancer. Past Surgical History: Tonsillectomy and hysterectomy. Past Medical History: Hypertension hyperlipidemia, anxiety, and alcohol use. Physical Examination: Vital Signs: Height 5 feet 1 inch, weight 110 pounds, temperature 97.4, pulse 61, respiratory rate 15, blood pressure 146/76, oxygen saturation 97%, on room air. General: Awake, alert, oriented, not in distress. HEENT: Head atraumatic, normocephalic. Conjunctivae nonerythematous. Sclerae white. Mouth, no thrush or edema noted. Ears/Nose, no mass, lesion, discharge noted. Neck: Supple. No JVD, lymph nodes, bruit, thyromegaly noted. Lungs: Bilateral good equal air entry. Clear to auscultation. No rhonchi. No rales. Heart: Normal heart sounds, no murmur or gallop. Abdomen: Soft, bowel sounds normal. No guarding, rigidity, tenderness, mass, hepatosplenomegaly, distention, or bruit noted. Extremities: No leg edema. No calf tenderness. Musculoskeletal: Right upper extremity is in sling and radial pulse in the right upper extremity is normal. Right lower extremity, normal dorsalis pedis artery pulsation. Skin: No rash, ulcer, cellulitis. Lymphatics: No lymph node enlargement in neck, supraclavicular, infraclavicular region. Neuro: No focal neurological deficit. Chest: Unremarkable. External Genitalia: Deferred. Rectal: Deferred. Laboratory Data: Yesterday, white count 11, hemoglobin 11.8, platelets 162. Today, white count 7.9, hemoglobin 10.8, platelets 112. INR 1.04, PT 12, PTT 24.7. Yesterday sodium 136, potassium 3.4, chloride 103, bicarb 23, BUN 8, creatinine 0.55, glucose 124. Today, sodium 137, potassium 3.8, chloride 105, bicarb 25, BUN 9, creatinine 0.42, glucose 127. COVID-19 test negative. X-ray of the right shoulder shows moderately displaced right humerus neck fracture extending into the lateral aspect of the humerus head. No dislocation and hip x-ray shows small to moderately displaced intertrochanteric/greater trochanteric fracture of the right femur. CAT scan of the head was negative for any acute intracranial changes. Impression: 1. Right hip intertrochanteric/greater trochanteric fracture with sofw-ap-qeqeewhv displacement. 2. Right humerus fracture, moderately displaced involving right humerus neck and lateral aspect of humerus head. 3. Anemia, unspecified. 4. Thrombocytopenia. 5. Hypertension. 6. Hyperlipidemia. 7. Anxiety. 8. Alcohol dependence. Plan: We will go ahead and admit the patient to hospital for further evaluation and management of this problem. The patient is appropriate for inpatient and is expected to spend 2 midnights in the hospital. She is n.p.o. right now. IV fluid will be continued. We will continue pain medications per order. SCD was ordered for deep venous thrombosis prophylaxis. The patient's EKG was done, which shows normal sinus rhythm, nonspecific T-wave changes. The patient is at acceptable risk from planned surgery today and this afternoon, she will have surgery for her hip fracture. I did discuss details with Dr. Downing, orthopedic surgeon on-call, who was consulted and he is planning to do hip surgery today, but planning to do conservative treatment for the right humerus fracture without any surgical intervention. After the surgery, appropriate deep venous thrombosis prophylaxis will be provided and her home medications will be continued after surgery and I will see her tomorrow for followup. We will have to monitor for any alcohol withdrawal problem like delirium tremens after surgery. Plan of treatment discussed with the patient. TARA/MODL Voice ID: [id number] EMANI
[2021-03-12] MEDS ORDERED: CEFAZOLIN/SWI 1gm 1 GM/10 ML SYR IV SCH (22:00)
[2021-03-12] MEDS ORDERED: CEFAZOLIN/SWI 1gm 2 GM/20 ML SYR ONE (22:08)
[2021-03-13] MEDS: CEFAZOLIN/SWI 1gm 1 GM/10 ML SYR IV SCH ×2 (03:54→10:26)
--- NOTE | 2021-03-13 04:43 | OP ---
Date of Procedure: 03/12/2021 Surgeon: Javier Downing MD Preoperative Diagnoses: 1.Right intertrochanteric femur fracture. 2.Right proximal humerus fracture. Postoperative Diagnoses: 1.Right intertrochanteric femur fracture. 2.Right proximal humerus fracture. Procedure Performed: 1.Cephalomedullary fixation of right intertrochanteric femur fracture. 2.Closed treatment of the right proximal humerus fracture. Anesthesia: General, LMA. Fluids: Per Anesthesia record. Estimated Blood Loss: 100 cc. Complications: None. Implants: An 11 x 180 mm Bi[employer] Affixus nail with an 80 mm lag screw. Complications: None. Indication For Procedure: Ms. Saez is a 65-year-old female who presented to the ER after sustaining a fall onto her right side with subsequent pain to her shoulder and right hip with inability to bear weight. X-rays demonstrated a displaced right intertrochanteric femur fracture and a displaced righ t proximal humerus fracture. I discussed with the patient at length her diagnosis as well as treatme nt plan. Given the displaced fracture of the intertrochanteric femur fracture, I recommended a cepha lomedullary fixation. I discussed with the patient risks and benefits associated with operative and nonoperative treatment. She expressed understanding and elected to proceed with operative treatment. Also discussed with the patient her right proximal humerus. It did have adequate alignment at this time and we will proceed with closed treatment. The patient will remain in a sling and be nonweight bearing to the right upper extremity. Description Of Procedure: After informed consent was obtained, the patient was identified in the pre operative holding area. The right lower extremity was marked. The patient was brought back to the o perating room, transferred to the operating table in the supine fashion and placed under general LMA anesthesia. She was then placed under the fracture table. Her extremities well padded. The right l ower extremity was then gently manipulated under fluoroscopic guidance and closed reduction was obtai talia. The left lower extremity was placed in an abducted position to allow for placement of fluorosco py. Her right upper extremity was padded against her body with no significant motion at the fracture site. The right lower extremity was then prepped and draped in usual sterile fashion. A time-out w as initiated. Correct patient and procedure were confirmed and identified. The patient did receive preoperative prophylactic antibiotics. A 4 cm longitudinal incision was made just proximal to the gr eater trochanter. Dissection was then taken down through the tensor fascia keya. A guide pin was th en placed in the tip of the greater trochanter, placed down the femoral canal in an antegrade fashion in a center-center position. Proper positioning was confirmed using fluoroscopy and entry reamer milana jones then placed over the guidepin down to the level of the lesser trochanter. A ball-tipped guidewire was then placed on the femoral canal in an antegrade fashion to the distal femur. Reamers were then used to ream the proximal femur up to a size 12.5 mm reamer and going in 0.5 mm increments until adeq uate chatter was encountered. Size 11 x 180 mm nail was then placed over the guidewire and positione d properly at the proper depth using fluoroscopy. The guidewire was then removed. A second stab inc ision was made over the lateral thigh using the jig for placement of the lag screw. A guidepin was t hen placed in the femoral head in a center-center position and measured and a size 80 mm lag screw milana jones selected, 80 mm lag screw was placed after the guidewire was over-reamed and then it was compressed using the jig and the lag screw was locked into position. A final interlocking screw was placed in bicortical fashion of the distal end of the nail using a jig. The jig was then removed. The wounds were then irrigated thoroughly with normal saline. Final x-rays were taken with adequate reduction a s well as adequate placement of the hardware. Subcu deep tissues approximated using 0 Vicryl. Skin and subcutaneous tissue were approximated using a 2-0 Vicryl. Skin was approximated using angel. Sterile dressings were applied. The patient was awakened and transferred to PACU in stable condition . Postoperative Plan: The patient will be weightbearing as tolerated on her right lower extremity. Sh e will be nonweightbearing on her right upper extremity. Physical Therapy will be consulted to aid w ith mobilization. CV/MODL Voice ID: [id number] Report ID: [id number]
[2021-03-13] MEDS: D5.45NS W/KCL 20MEQ 1,000 ML IV SCH (07:10)
[2021-03-13 07:21] LABS: Absolute Lymphocytes (CBC) 0.4 K/uL (0.7-4.9); Basophils % 0.3 % (0-1.3); Hematocrit 25.3 % (36.0-45.0); Lymphocytes % 4.1 % (15.3-44.8); MPV 8.3 fL (7.6-11.3); RBC Red Blood Cell Count 2.26 M/uL (3.86-4.86)
[2021-03-13 07:32] LABS: ALT/SGPT 48 U/L (12-78); AST/SGOT 44 U/L (15-37); Albumin 2.8 g/dL (3.4-5.0); Alkaline Phosphatase 61 U/L (45-117); BUN Blood Urea Nitrogen 5 mg/dL (7-18); Bicarbonate 25 mmol/L (21-32); Bilirubin Total 1.4 mg/dL (0.2-1.0); Glucose Level 149 mg/dL (74-106); Magnesium 1.7 mg/dL (1.8-2.4); Phosphorus 2.3 mg/dL (2.5-4.9); Protein, Total 5.9 g/dL (6.4-8.2); Sodium Level 137 mmol/L (136-145)
[2021-03-13] MEDS ORDERED: MAGNESIUM SULFATE 1 gm IVPB 1 GM/100 ML BAG IV ONE (09:00)
[2021-03-13] MEDS: ENOXAPARIN 40 MG/0.4 ML SQ SCH (09:00)
[2021-03-13] MEDS: HYDROCODONE/APAP 7.5/325 MG TAB PO PRN (10:25)
[2021-03-13] MEDS: POTASS/SODIUM PHOSPHATE 1 PKT POWD.PACK PO SCH ×3 (10:27→12:41)
[2021-03-13] MEDS: METOPROLOL TAR 25 MG TAB PO SCH ×2 (10:32→20:31)
[2021-03-13] MEDS: ESCITALOPRAM 20 MG TAB PO SCH (10:32)
[2021-03-13] MEDS: ENSURE HIGH PROTEIN 237 ML CAN PO SCH ×2 (10:33→20:25)
--- NOTE | 2021-03-13 11:43 | PN ---
Date of Progress Note: 03/13/2021 Subjective: The patient was seen this morning for followup. No new complaints or problems reported by the patient. Lying in bed, not in distress. Denies any complaints this morning. Objective: Vital Signs: Reviewed. HEENT: Unremarkable. Lungs: Clear to auscultation. Heart: Sounds normal. Abdomen: Soft. Bowel sounds normal. No guarding, rigidity, tenderness, or distention. Extremity: No leg edema. Laboratory Data: White count 8.8, hemoglobin 9, platelets 132. Sodium 137, potassium 4, chloride 10 7, bicarb 25, BUN 5, creatinine 0.46, glucose 149, phosphorus 2.3, magnesium 1.7, total bilirubin 1.4 , AST 44, ALT 48, alkaline phosphatase 61, albumin 2.8. Impression: 1.Right hip fracture. 2.Right humerus fracture. 3.Hypomagnesemia. 4.Hypophosphatemia. 5.Thrombocytopenia. 6.Hypertension. 7.Anemia due to acute blood loss. Plan: We will continue current medications. Continue DVT prophylaxis and SCD. Replace electrolytes per protocol. Continue antihypertensive medication and her home medications per order. We will sta rt her on stool softener and physical therapy to work with the patient, and Rehab consult has been requested. We will continue to follow up with Dr. Downing. TARA/EVITA Voice ID: [id number] Report ID: [id number]
--- NOTE | 2021-03-13 12:09 | P.PN ---
Subjective Date of Service: 03/13/21 Chief Complaint: right shoulder and right hip pain Subjective: Working w/ PT pain improving today; continued baseline pain with right shoulder and right hip Physical Examination - Vital Signs Temperature: 97.3 F Blood Pressure: 134/63 Pulse: 73 Respirations: 16 Pulse Ox (%): 98 - Physical Exam General: Alert, In no apparent distress Musculoskeletal: Other (RLE: dressing c/d/i; +EHL/FHL/GSC/TA; sensation grossly intact distally; RUE: ttp over the proximal humerus; NVI distally) Assessment And Plan - Plan Eulaliooeminerva is a 65 yo female with a right proximal humerus fracture s/p IMN of her right IT femur fracture POD#1 -PT to mobilize NWB RUE, WBAT RLE -acute expected postoperative blood loss anemia; continue to monitor H/H; -lovenox for DVT prophylaxis -await IPR eval
[2021-03-13] MEDS: TRAMADOL HCL 50 MG TAB PO PRN (16:11)
[2021-03-13] MEDS ORDERED: CEFAZOLIN/SWI 1gm 1 GM/10 ML SYR IV SCH (18:30)
[2021-03-14 05:36] LABS: Absolute Lymphocytes (CBC) 1.1 K/uL (0.7-4.9); Basophils % 0.1 % (0-1.3); Hematocrit 21.6 % (36.0-45.0); Lymphocytes % 19.7 % (15.3-44.8); MPV 7.7 fL (7.6-11.3); RBC Red Blood Cell Count 1.92 M/uL (3.86-4.86)
[2021-03-14 06:01] LABS: BUN Blood Urea Nitrogen 8 mg/dL (7-18); Bicarbonate 28 mmol/L (21-32); Folic Acid, (Folate) 2.9 ng/mL (3.1-17.5); Glucose Level 89 mg/dL (74-106); Phosphorus 2.4 mg/dL (2.5-4.9); Potassium 3.7 mmol/L (3.5-5.1); Sodium Level 138 mmol/L (136-145)
[2021-03-14] MEDS ORDERED: MAGNESIUM HYDROXIDE 8% 30 ML PO PRN (07:07)
[2021-03-14] MEDS: ENOXAPARIN 40 MG/0.4 ML SQ SCH (09:00)
[2021-03-14] MEDS: TRAMADOL HCL 50 MG TAB PO PRN (09:36)
[2021-03-14] MEDS: DOCUSATE NA 100 MG CAP PO SCH (09:37)
[2021-03-14] MEDS: CYANOCOBALAMIN 1,000 MCG TAB PO SCH (09:37)
[2021-03-14] MEDS: ENSURE HIGH PROTEIN 237 ML CAN PO SCH ×2 (09:37→20:40)
[2021-03-14] MEDS: ESCITALOPRAM 20 MG TAB PO SCH (09:37)
[2021-03-14] MEDS: THIAMINE HCL 100 MG TABLET PO SCH (09:38)
[2021-03-14] MEDS: METOPROLOL TAR 25 MG TAB PO SCH ×2 (09:38→20:39)
[2021-03-14] MEDS: FOLIC ACID 1 MG TABLET PO SCH (09:38)
[2021-03-14] MEDS ORDERED: NA CHLORIDE 0.9% 250 ML ONE (13:19)
[2021-03-14 20:17] LABS: Hematocrit 27.9 % (36.0-45.0)
--- NOTE | 2021-03-14 23:21 | P.PN ---
Subjective Date of Service: 03/14/21 Chief Complaint: right shoulder and right hip pain Subjective: Improving, Working w/ PT pain controlled Physical Examination - Vital Signs Temperature: 97.6 F Blood Pressure: 138/71 Pulse: 76 Respirations: 18 Pulse Ox (%): 98 - Physical Exam General: Alert, In no apparent distress Musculoskeletal: No clubbing, Other (RLE: dressing with minimal sanguinous drainage; +EHL/FHL/GSC/TA; sensation grossly intact distally RUE: in sling; pain with ROM of th right shoulder; NVI distally) Assessment And Plan - Plan Eulaliooeminerva is a 65 yo female with a right proximal humerus fracture s/p IMN of her right IT femur fracture POD#2 -PT to mobilize NWB RUE, WBAT RLE -acute expected postoperative blood loss anemia; transfused 1 unit PRBC today -lovenox for DVT prophylaxis -await IPR eval
[2021-03-15 05:34] LABS: Absolute Lymphocytes (CBC) 1.2 K/uL (0.7-4.9); Basophils % 0.4 % (0-1.3); Hematocrit 27.2 % (36.0-45.0); Lymphocytes % 18.9 % (15.3-44.8); MPV 7.3 fL (7.6-11.3); RBC Red Blood Cell Count 2.56 M/uL (3.86-4.86)
--- NOTE | 2021-03-15 07:33 | PN ---
Date of Progress Note: 03/14/2021 Subjective: The patient was seen this morning for followup. She was lying in bed, not in distress. No new complaints or problems reported by her. Objective: Vital Signs: Reviewed. HEENT: Unremarkable. Lungs: Clear to auscultation. Heart: Sounds normal. Abdomen: Soft. Bowel sounds normal. No guarding, rigidity, tenderness, or distention. Extremities: No leg edema. Laboratory Data: White count 5.4, hemoglobin 7.5, platelets 149. Sodium 138, potassium 3.7, chlorid e 107, bicarb 28, BUN 8, creatinine 0.38, glucose 89, phosphorus 2.4, magnesium 2. Vitamin B12 level 250, folic acid level 2.9. Impression: 1.Hip fracture. 2.Humerus fracture. 3.Acute blood loss anemia. 4.Folic acid deficiency. Plan: We will go ahead and continue current Lovenox for DVT prophylaxis. Start the patient on vitam in B12 supplement considering B12 is on the lower side of normal range with longstanding history of a lcohol use. We will also go ahead and start her on folic acid supplement. Continue thiamine, contin ue current pain medications. We will give 1 unit of PRBC blood transfusion today for acute blood los s anemia, get hemoglobin and hematocrit 2 hours post transfusion, follow up with Physical Therapy, and Rehab consult was requested. I will see her tomorrow for followup. TARA/MODL Voice ID: [id number] Report ID: [id number]
[2021-03-15] MEDS ORDERED: POTASSIUM PHOS IN 0.9 % NACL 15 MMOL/250 ML BAG IV ONE (08:01)
[2021-03-15] MEDS: ESCITALOPRAM 20 MG TAB PO SCH (08:35)
[2021-03-15] MEDS: ENSURE HIGH PROTEIN 237 ML CAN PO SCH ×2 (08:35→21:00)
[2021-03-15] MEDS: METOPROLOL TAR 25 MG TAB PO SCH ×2 (08:35→20:54)
[2021-03-15] MEDS: FOLIC ACID 1 MG TABLET PO SCH (08:35)
[2021-03-15] MEDS: THIAMINE HCL 100 MG TABLET PO SCH (08:35)
[2021-03-15] MEDS: CYANOCOBALAMIN 1,000 MCG TAB PO SCH (08:35)
[2021-03-15] MEDS: DOCUSATE NA 100 MG CAP PO SCH (08:35)
[2021-03-15] MEDS: ENOXAPARIN 40 MG/0.4 ML SQ SCH (08:36)
[2021-03-15] MEDS: TRAMADOL HCL 50 MG TAB PO PRN ×2 (08:37→20:53)
[2021-03-15] MEDS: HYDROCODONE/APAP 7.5/325 MG TAB PO PRN (13:12)
--- NOTE | 2021-03-16 06:07 | PN ---
Date of Progress Note: 03/15/2021 Subjective: The patient was seen for followup in the morning. No new complaints or problems reporte d by the patient. Lying in bed, not in any distress. Denies any chest pain, shortness of breath, na usea, vomiting. Objective: Vital Signs: Reviewed. HEENT: Unremarkable. Lungs: Clear to auscultation. Heart: Sounds normal. Abdomen: Soft. Bowel sounds normal. No guarding, rigidity, tenderness, or distention. Extremities: No leg edema. Laboratory Data: White count 6.4, hemoglobin 9.6, platelets 180. Impression: 1.Acute blood loss anemia. 2.Right humerus fracture. 3.Hypertension. Plan: We will continue current medication. Hemoglobin is stable after 1 unit of blood transfusion. We will continue current pain medications, antihypertensive medication, and DVT prophylaxis. Contin ue to follow with Physical Therapy and I will see her tomorrow for followup. TARA/MODL Voice ID: [id number] Report ID: [id number]
[2021-03-16 06:27] LABS: BUN Blood Urea Nitrogen 6 mg/dL (7-18); Bicarbonate 26 mmol/L (21-32); Glucose Level 77 mg/dL (74-106); Potassium 3.7 mmol/L (3.5-5.1); Sodium Level 134 mmol/L (136-145)
[2021-03-16 07:21] LABS: Phosphorus 3.2 mg/dL (2.5-4.9)
[2021-03-16] MEDS: CYANOCOBALAMIN 1,000 MCG TAB PO SCH (08:10)
[2021-03-16] MEDS: ESCITALOPRAM 20 MG TAB PO SCH (08:10)
[2021-03-16] MEDS: FOLIC ACID 1 MG TABLET PO SCH (08:10)
[2021-03-16] MEDS: DOCUSATE NA 100 MG CAP PO SCH (08:10)
[2021-03-16] MEDS: METOPROLOL TAR 25 MG TAB PO SCH ×2 (08:10→21:14)
[2021-03-16] MEDS: TRAMADOL HCL 50 MG TAB PO PRN (08:10)
[2021-03-16] MEDS: THIAMINE HCL 100 MG TABLET PO SCH (08:11)
[2021-03-16] MEDS: ENSURE HIGH PROTEIN 237 ML CAN PO SCH ×2 (08:11→21:00)
[2021-03-16] MEDS: ENOXAPARIN 40 MG/0.4 ML SQ SCH (08:11)
[2021-03-16] MEDS ORDERED: POTASSIUM CL SA 10 MEQ TAB PO ONE (09:00)
--- NOTE | 2021-03-16 16:56 | P.PN ---
Subjective Date of Service: 03/16/21 Chief Complaint: right shoulder and right hip pain Subjective: Ambulating, Improving, Working w/ PT pain controlled Physical Examination - Vital Signs Temperature: 97.1 F Blood Pressure: 119/56 Pulse: 69 Respirations: 15 Pulse Ox (%): 96 - Physical Exam General: Alert, In no apparent distress Musculoskeletal: Other (RLE: dressing with mild sanguinous drainage; NVI distally; RUE: in shoulder sling; ttp over the proximal humerus; NVI distally) Assessment And Plan - Plan Ryland is a 65 yo female with a right proximal humerus fracture s/p IMN of her right IT femur fracture POD#4 -PT to mobilize NWB RUE, WBAT RLE -acute expected postoperative blood loss anemia; H/H stabilized -lovenox for DVT prophylaxis -await IPR status with insurance
--- NOTE | 2021-03-16 19:10 | PN ---
Date of Progress Note: 03/16/2021 Subjective: The patient was seen this morning for followup. No new complaints or problems reported by the patient. Lying in bed, not in distress. No chest pain, shortness of breath, nausea, vomiting . Objective: Vital Signs: Reviewed. HEENT: Unremarkable. Lungs: Clear to auscultation. Heart: Sounds normal. Abdomen: Soft. Bowel sounds normal. No guarding, rigidity, tenderness, distention. Extremities: No leg edema. Impression: 1.Hip fracture. 2.Humerus fracture. 3.Hypertension. 4.Acute blood loss anemia. Plan: We will continue current medications, continue current pain medications, and metoprolol. Phys ical Therapy to continue to work with the patient and I will see her tomorrow for followup. We will continue current DVT prophylaxis. We are waiting on approval for the patient to go to inpatient reha b. TARA/EVITA Voice ID: [id number] Report ID: [id number]
[2021-03-16] MEDS: HYDROCODONE/APAP 7.5/325 MG TAB PO PRN (23:25)
[2021-03-17 05:44] LABS: Absolute Lymphocytes (CBC) 1.3 K/uL (0.7-4.9); Basophils % 0.4 % (0-1.3); Hematocrit 29.7 % (36.0-45.0); MPV 7.2 fL (7.6-11.3); RBC Red Blood Cell Count 2.77 M/uL (3.86-4.86)
[2021-03-17 05:53] LABS: BUN Blood Urea Nitrogen 8 mg/dL (7-18); Bicarbonate 27 mmol/L (21-32); Glucose Level 82 mg/dL (74-106); Potassium 3.9 mmol/L (3.5-5.1); Sodium Level 136 mmol/L (136-145)
[2021-03-17] MEDS: ESCITALOPRAM 20 MG TAB PO SCH (08:20)
[2021-03-17] MEDS: FOLIC ACID 1 MG TABLET PO SCH (08:21)
[2021-03-17] MEDS: CYANOCOBALAMIN 1,000 MCG TAB PO SCH (08:21)
[2021-03-17] MEDS: THIAMINE HCL 100 MG TABLET PO SCH (08:21)
[2021-03-17] MEDS: DOCUSATE NA 100 MG CAP PO SCH (08:21)
[2021-03-17] MEDS: METOPROLOL TAR 25 MG TAB PO SCH ×2 (08:22→20:25)
[2021-03-17] MEDS: HYDROCODONE/APAP 7.5/325 MG TAB PO PRN ×2 (08:23→17:22)
[2021-03-17] MEDS: ENOXAPARIN 40 MG/0.4 ML SQ SCH (08:24)
[2021-03-17] MEDS: ENSURE HIGH PROTEIN 237 ML CAN PO SCH ×2 (08:25→20:34)
[2021-03-17 08:28] LABS: Anisocytosis 1+; Blood Morphology Comment NOTED (NOT SEEN); Macrocytosis 1+; Platelet Estimate ADEQ; Polychromasia 1+
[2021-03-17] MEDS ORDERED: POTASSIUM CL SA 10 MEQ TAB PO ONE (09:00)
[2021-03-17] MEDS: TRAMADOL HCL 50 MG TAB PO PRN (20:24)
--- NOTE | 2021-03-18 06:06 | PN ---
Date of Progress Note: 03/17/2021 Subjective: The patient was seen this morning for followup. No new complaints or problems reported by patient lying in bed, not in any distress. Denies any new complaints. She is participating well with physical therapy. No abdominal pain, chest pain, or shortness of breath. Objective: Vital Signs: Reviewed. Blood pressure is higher than normal. HEENT: Unremarkable. Lungs: Clear to auscultation. Heart: Sounds normal. Abdomen: Soft. Bowel sounds normal. No guarding, rigidity, tenderness, or distention. Extremities: No leg edema. Laboratory Data: White count 7.4, hemoglobin 10.4, platelets 320. Sodium 136, potassium 3.9, chlori de 103, bicarb 27, BUN 8 and creatinine of 0.35, glucose 82. Impression: 1.Right hip fracture. 2.Right humerus fracture. 3.Anemia due to acute blood loss. 4.Hypertension. Plan: We will go ahead and increase the dose of metoprolol from 12.5 mg 2 times a day to 25 mg 2 dre es a day. Continue current DVT prophylaxis. Continue current pain medications and Physical Therapy to continue to work with the patient and we are waiting on [employer]'s approval process for i npatient rehab. TARA/MODL Voice ID: [id number] Report ID: [id number]
[2021-03-18] MEDS: ESCITALOPRAM 20 MG TAB PO SCH (09:07)
[2021-03-18] MEDS: FOLIC ACID 1 MG TABLET PO SCH (09:07)
[2021-03-18] MEDS: DOCUSATE NA 100 MG CAP PO SCH (09:07)
[2021-03-18] MEDS: CYANOCOBALAMIN 1,000 MCG TAB PO SCH (09:07)
[2021-03-18] MEDS: METOPROLOL TAR 25 MG TAB PO SCH ×2 (09:08→20:34)
[2021-03-18] MEDS: ENSURE HIGH PROTEIN 237 ML CAN PO SCH ×2 (09:09→20:38)
[2021-03-18] MEDS: HYDROCODONE/APAP 7.5/325 MG TAB PO PRN ×2 (09:12→20:35)
[2021-03-18] MEDS: THIAMINE HCL 100 MG TABLET PO SCH (09:12)
[2021-03-18] MEDS: ENOXAPARIN 40 MG/0.4 ML SQ SCH (09:13)
[2021-03-18] MEDS: TRAMADOL HCL 50 MG TAB PO PRN (14:20)
[2021-03-19] MEDS: ENSURE HIGH PROTEIN 237 ML CAN PO SCH ×2 (09:00→22:18)
[2021-03-19] MEDS: FOLIC ACID 1 MG TABLET PO SCH (09:00)
[2021-03-19] MEDS: ENOXAPARIN 40 MG/0.4 ML SQ SCH (09:00)
[2021-03-19] MEDS: THIAMINE HCL 100 MG TABLET PO SCH (09:00)
[2021-03-19] MEDS: DOCUSATE NA 100 MG CAP PO SCH (09:00)
[2021-03-19] MEDS: METOPROLOL TAR 25 MG TAB PO SCH ×2 (09:00→22:17)
[2021-03-19] MEDS: CYANOCOBALAMIN 1,000 MCG TAB PO SCH (09:00)
[2021-03-19] MEDS: ESCITALOPRAM 20 MG TAB PO SCH (09:00)
--- NOTE | 2021-03-19 10:22 | PN ---
Date of Progress Note: 03/18/2021 Subjective: The patient was seen this morning for followup. No new complaints or problems reported by her. She was lying in bed, not in any distress. Objective: Vital Signs: Reviewed. HEENT: Unremarkable. Lungs: Clear to auscultation. Heart: Sounds normal. Abdomen: Soft. Bowel sounds normal. No guarding, rigidity, tenderness, or distention. Extremities: No leg edema. Impression: 1.Hip fracture. 2.Right humerus fracture. 3.Acute blood loss anemia. 4.Hypertension. Plan: The patient's blood pressure is under better control since we made adjustment of the dose. We will continue current metoprolol. Continue current DVT prophylaxis. Continue to work with Physical therapy. We are waiting on insurance company's approval process for rehab stay. Continue current p ain medications. TARA/MODL Voice ID: [id number] Report ID: [id number]
[2021-03-19] MEDS: HYDROCODONE/APAP 7.5/325 MG TAB PO PRN ×2 (10:49→17:39)
[2021-03-19] MEDS ORDERED: BISACODYL 10 MG RECTAL SUPP PR ONE (11:29)
--- NOTE | 2021-03-19 12:19 | PN ---
Date of Progress Note: 03/19/2021 Subjective: The patient was seen this morning for followup. She was lying in bed, not in distress. No new complaints or problems reported by her. She has not had a bowel movement in 2 days as per my discussion with her. Denies any abdominal discomfort. No nausea, no vomiting. Objective: Vital Signs: Reviewed. HEENT: Unremarkable. Lungs: Clear to auscultation. Heart: Sounds normal. Abdomen: Soft. Bowel sounds normal. No guarding, rigidity, tenderness, or distention. Extremities: No leg edema. Impression: 1.Hip fracture. 2.Constipation. 3.Hypertension. 4.Acute blood loss anemia. Plan: We will go ahead and discontinue docusate sodium and instead of that we will start her on Seno yoon-S 2 tablets by mouth 2 times a day. We will also give 1 dose of Dulcolax rectal suppository toda y. We will discontinue Lovenox and instead of that starting tomorrow. We will start her on Xarelto 10 mg p.o. daily for DVT prophylaxis. Her last dose of Lovenox was this morning. We will repeat blo od work tomorrow morning. TARA/MODL Voice ID: [id number] Report ID: [id number]
[2021-03-19] MEDS: DOCUSATE NA/SENNA CONC 1 TAB PO SCH (22:16)
[2021-03-19] MEDS: TRAMADOL HCL 50 MG TAB PO PRN (22:17)
[2021-03-20] MEDS: HYDROCODONE/APAP 7.5/325 MG TAB PO PRN ×4 (01:44→21:45)
[2021-03-20 06:18] LABS: Absolute Lymphocytes (CBC) 0.9 K/uL (0.7-4.9); Basophils % 0.8 % (0-1.3); Hematocrit 29.9 % (36.0-45.0); Lymphocytes % 17.1 % (15.3-44.8); MPV 6.7 fL (7.6-11.3); RBC Red Blood Cell Count 2.79 M/uL (3.86-4.86)
[2021-03-20 06:42] LABS: BUN Blood Urea Nitrogen 8 mg/dL (7-18); Bicarbonate 28 mmol/L (21-32); Glucose Level 87 mg/dL (74-106); Magnesium 2.3 mg/dL (1.8-2.4); Potassium 3.8 mmol/L (3.5-5.1); Sodium Level 139 mmol/L (136-145)
[2021-03-20] MEDS ORDERED: POTASSIUM CL SA 10 MEQ TAB PO ONE (09:00)
[2021-03-20] MEDS: ENSURE HIGH PROTEIN 237 ML CAN PO SCH ×2 (09:00→21:46)
[2021-03-20] MEDS: DOCUSATE NA/SENNA CONC 1 TAB PO SCH ×2 (10:30→21:45)
[2021-03-20] MEDS: THIAMINE HCL 100 MG TABLET PO SCH (10:30)
[2021-03-20] MEDS: CYANOCOBALAMIN 1,000 MCG TAB PO SCH (10:30)
[2021-03-20] MEDS: ESCITALOPRAM 20 MG TAB PO SCH (10:30)
[2021-03-20] MEDS: RIVAROXABAN 10 MG TABLET PO SCH (10:30)
[2021-03-20] MEDS ORDERED: BISACODYL 10 MG RECTAL SUPP PR ONE (10:30)
[2021-03-20] MEDS: FOLIC ACID 1 MG TABLET PO SCH (10:30)
[2021-03-20] MEDS: METOPROLOL TAR 25 MG TAB PO SCH ×2 (10:30→21:45)
--- NOTE | 2021-03-20 11:38 | PN ---
Date of Progress Note: 03/20/2021 Subjective: The patient was seen this morning for followup. She was lying in bed, not in any distre ss. Denies any new complaints. Yesterday, I ordered Dulcolax rectal suppository x1 dose because she had not had a bowel movement for at least a couple of days as she reported and when I asked her toda y if she had a bowel movement or not, she says she did not and when I asked her about the Dulcolax re ctal suppository, she told me she does not know if she received that dose yesterday or not. After I saw her, I talked to the nurse and nurse informed me that the patient actually refused suppository. Objective: HEENT: Examination unremarkable. Lungs: Clear to auscultation. Heart: Sounds normal. Abdomen: Soft, bowel sounds normal. No guarding, rigidity, tenderness, or distention. Extremities: No leg edema. Laboratory Data: White count 5.5, hemoglobin 10.5, platelets 332. Sodium 139, potassium 3.8, chlori de 106, bicarb 28, BUN 8, creatinine 0.36, glucose 87, magnesium 2.3. Impression: 1.Constipation. 2.Hip fracture. 3.Humerus fracture. 4.Anemia due to acute blood loss. 5.Hypertension. Plan: We will go ahead and continue current medications. Pain is well controlled with pain medicati ons for constipation. I have ordered Dulcolax rectal suppository and I have asked nurse to make sure to let the patient know that it is important for her to take this particular medication for her cons tipation problem. We will continue her stool softener per order. Physical Therapy to continue to wo rk with the patient. Continue current anticoagulation therapy for DVT prophylaxis, which is Xarelto 10 mg daily. I will see her tomorrow for followup. TARA/MODL Voice ID: [id number] Report ID: [id number]
[2021-03-20] MEDS: TRAMADOL HCL 50 MG TAB PO PRN (11:46)
[2021-03-21] MEDS: HYDROCODONE/APAP 7.5/325 MG TAB PO PRN ×3 (02:10→20:22)
[2021-03-21 06:16] LABS: BUN Blood Urea Nitrogen 11 mg/dL (7-18); Bicarbonate 27 mmol/L (21-32); Glucose Level 86 mg/dL (74-106); Potassium 3.8 mmol/L (3.5-5.1); Sodium Level 139 mmol/L (136-145)
[2021-03-21] MEDS: DOCUSATE NA/SENNA CONC 1 TAB PO SCH ×2 (08:47→20:21)
[2021-03-21] MEDS: RIVAROXABAN 10 MG TABLET PO SCH (08:47)
[2021-03-21] MEDS: CYANOCOBALAMIN 1,000 MCG TAB PO SCH (08:48)
[2021-03-21] MEDS: FOLIC ACID 1 MG TABLET PO SCH (08:50)
[2021-03-21] MEDS: THIAMINE HCL 100 MG TABLET PO SCH (08:51)
[2021-03-21] MEDS: METOPROLOL TAR 25 MG TAB PO SCH ×2 (08:52→20:21)
[2021-03-21] MEDS: ESCITALOPRAM 20 MG TAB PO SCH (08:53)
[2021-03-21] MEDS: ENSURE HIGH PROTEIN 237 ML CAN PO SCH ×2 (08:56→20:22)
[2021-03-21] MEDS ORDERED: POTASSIUM CL SA 10 MEQ TAB PO ONE (09:00)
--- NOTE | 2021-03-21 20:00 | PN ---
Date of Progress Note: 03/21/2021 Subjective: The patient was evaluated this afternoon via tele visit, that included audio and video c omponent. She did have bowel movement yesterday and today she reports after Dulcolax rectal supposit ory. Denies any chest pain, shortness of breath. No abdominal pain, nausea, or vomiting. Has a goo d appetite and pain is well controlled. Objective: Vital signs: Reviewed. Impression: 1.Hip fracture. 2.Humerus fracture. 3.Acute blood loss anemia. 4.Hypertension. 5.Constipation. Plan: We will go ahead and continue current medications. Continue current DVT prophylaxis and antih ypertensive medication. Continue to follow up with Physical therapy. We are waiting on [employer]'s approval for rehab stay for inpatient rehab. Hopefully, we will hear from insurance [employer] by tomorrow, so we can make further decision on disposition. TARA/MODL Voice ID: [id number] Report ID: [id number]
[2021-03-22] MEDS: HYDROCODONE/APAP 7.5/325 MG TAB PO PRN (02:28)
[2021-03-22 06:03] LABS: BUN Blood Urea Nitrogen 10 mg/dL (7-18); Bicarbonate 27 mmol/L (21-32); Glucose Level 83 mg/dL (74-106); Potassium 3.9 mmol/L (3.5-5.1); Sodium Level 138 mmol/L (136-145)
[2021-03-22] MEDS: RIVAROXABAN 10 MG TABLET PO SCH (08:29)
[2021-03-22] MEDS: DOCUSATE NA/SENNA CONC 1 TAB PO SCH ×2 (08:29→20:10)
[2021-03-22] MEDS: METOPROLOL TAR 25 MG TAB PO SCH ×2 (08:30→20:10)
[2021-03-22] MEDS: CYANOCOBALAMIN 1,000 MCG TAB PO SCH (08:30)
[2021-03-22] MEDS: ESCITALOPRAM 20 MG TAB PO SCH (08:30)
[2021-03-22] MEDS: THIAMINE HCL 100 MG TABLET PO SCH (08:31)
[2021-03-22] MEDS: FOLIC ACID 1 MG TABLET PO SCH (08:31)
[2021-03-22] MEDS: ENSURE HIGH PROTEIN 237 ML CAN PO SCH ×2 (08:32→20:11)
[2021-03-22] MEDS: TRAMADOL HCL 50 MG TAB PO PRN ×3 (08:36→20:11)
[2021-03-22] MEDS ORDERED: POTASSIUM CL SA 10 MEQ TAB PO ONE (09:00)
--- NOTE | 2021-03-22 22:10 | PN ---
Date of Progress Note: 03/22/2021 Subjective: The patient was seen this morning for followup. No new complaints, problems reported by patient. Lying in bed, not in distress. Objective: VITAL SIGNS: Reviewed. HEENT: Unremarkable. LUNGS: Clear to auscultation. CARDIAC: Heart sounds normal. ABDOMEN: Soft, bowel sounds normal. No guarding, rigidity, tenderness, or distention. EXTREMITIES: No leg edema. Laboratory Data: Sodium 138, potassium 3.9, chloride 105, bicarb 27, BUN 10, creatinine 0.39, glucos e 83. Impression: 1.Hip fracture. 2.Humerus fracture. 3.Anemia due to acute blood loss. 4.Hypertension. Plan: We will go ahead and continue current medication. Continue current stool softener. Pain medi cation. She is on tramadol and hydrocodone. We will discontinue hydrocodone and continue tramadol o n a p.r.n. basis. Continue current antihypertensive medication and I will see her tomorrow for joshua lujan. We are waiting on insurance [employer]'s decision regarding approval for patient to go to [facility] rehab. TARA/MODL Voice ID: [id number] Report ID: [id number]
[2021-03-23] MEDS: TRAMADOL HCL 50 MG TAB PO PRN ×2 (04:18→15:22)
[2021-03-23] MEDS: ENSURE HIGH PROTEIN 237 ML CAN PO SCH ×2 (09:56→21:00)
[2021-03-23] MEDS: DOCUSATE NA/SENNA CONC 1 TAB PO SCH ×2 (09:57→21:00)
[2021-03-23] MEDS: THIAMINE HCL 100 MG TABLET PO SCH (09:57)
[2021-03-23] MEDS: METOPROLOL TAR 25 MG TAB PO SCH ×2 (09:57→21:00)
[2021-03-23] MEDS: CYANOCOBALAMIN 1,000 MCG TAB PO SCH (09:57)
[2021-03-23] MEDS: ESCITALOPRAM 20 MG TAB PO SCH (09:57)
[2021-03-23] MEDS: FOLIC ACID 1 MG TABLET PO SCH (09:57)
[2021-03-23] MEDS: RIVAROXABAN 10 MG TABLET PO SCH (09:58)
[2021-03-23] MEDS ORDERED: NA CHLORIDE 0.9% 0 ML ONE (19:12)
--- NOTE | 2021-03-23 21:38 | PN ---
Date of Progress Note: 03/23/2021 Subjective: Patient was seen this morning for followup. She was lying in bed, not in distress. No new complaints or problems reported by her. Objective: Vital Signs: Reviewed. HEENT: Unremarkable. Lungs: Clear to auscultation. Heart: Heart sounds normal. Abdomen: Soft. Bowel sounds normal. No guarding, rigidity, tenderness, or distention. Extremities: No leg edema. Impression: 1.Hip fracture. 2.Humerus fracture. 3.Acute blood loss anemia. 4.Hypertension. Plan: We will go ahead and continue current medication. The patient's insurance company has denied approval for inpatient rehab stay, so now Social Service to make arrangements for patient to go to [facility]. The patient is not able to go home directly as she will need somebody with h er 24 hours all the time in the beginning until she becomes independent, but to start with she is goi ng to need assistance that she is not able to get it at home. [facility] As soon as we get arrangements completed, we will plan to discharge her. Continue curre nt tramadol for pain. Continue current DVT prophylaxis. I will see her tomorrow for followup. TARA/MODL Voice ID: [id number] Report ID: [id number]
--- NOTE | 2021-03-23 22:48 | P.PN ---
Subjective Date of Service: 03/23/21 Chief Complaint: right shoulder and right hip pain Subjective: Ambulating, Improving, Working w/ PT pain controlled Physical Examination - Vital Signs Temperature: 97.6 F Blood Pressure: 125/69 Pulse: 71 Respirations: 20 Pulse Ox (%): 96 - Physical Exam General: Alert, In no apparent distress Musculoskeletal: Other (RLE: dressing c/d/i; +EHL/FHL/GSC/TA; sensation grossly intact distally) Assessment And Plan - Plan Ryland is a 65 yo female with a right proximal humerus fracture s/p IMN of her right IT femur fracture POD#11 -PT to mobilize NWB RUE, WBAT RLE -lovenox for DVT prophylaxis -IPR denied; await SNF placement approval
[2021-03-24 08:32] LABS: Absolute Lymphocytes (CBC) 1.1 K/uL (0.7-4.9); Basophils % 0.7 % (0-1.3); Hematocrit 31.7 % (36.0-45.0); Lymphocytes % 17.7 % (15.3-44.8); MPV 7.1 fL (7.6-11.3); RBC Red Blood Cell Count 2.94 M/uL (3.86-4.86)
[2021-03-24] MEDS ORDERED: POTASSIUM 25 MEQ EFFERV TAB PO ONE (09:00)
[2021-03-24] MEDS: TRAMADOL HCL 50 MG TAB PO PRN (09:36)
[2021-03-24] MEDS: CYANOCOBALAMIN 1,000 MCG TAB PO SCH (09:37)
[2021-03-24] MEDS: RIVAROXABAN 10 MG TABLET PO SCH (09:37)
[2021-03-24] MEDS: THIAMINE HCL 100 MG TABLET PO SCH (09:37)
[2021-03-24] MEDS: FOLIC ACID 1 MG TABLET PO SCH (09:37)
[2021-03-24] MEDS: METOPROLOL TAR 25 MG TAB PO SCH (09:37)
[2021-03-24] MEDS: ESCITALOPRAM 20 MG TAB PO SCH (09:37)
[2021-03-24] MEDS: DOCUSATE NA/SENNA CONC 1 TAB PO SCH (09:37)
[2021-03-24] MEDS: ENSURE HIGH PROTEIN 237 ML CAN PO SCH (09:38)
[2021-03-24 10:45] VITALS: O2SAT 100
[2021-03-24 11:57] VITALS: BP 117/58; TEMP 97
--- NOTE | 2021-03-24 14:55 | RAD REPORT ---
EXAM DESCRIPTION: RAD - Hip Right 2 View - 03/24/2021 2:43 pm CLINICAL HISTORY: pain, f/u postop COMPARISON: Hip Right 2 View dated 03/12/2021; Hip Right 2 View dated 03/11/2021Hip Right 2 View dated 03/12/2021; Hip Right 2 View dated 03/11/2021 FINDINGS: No acute fracture. No dislocation . Intramedullary elizabeth with cephalomedullary screw in the right femur. No evidence of hardware complications. IMPRESSION: No acute osseous abnormality involving the right hip. No evidence of hardware complicati ons.
--- NOTE | 2021-03-24 15:07 | RAD REPORT ---
EXAM DESCRIPTION: RAD - Shoulder Right 2 View - 03/24/2021 2:43 pm CLINICAL HISTORY: pain COMPARISON: Shoulder Right 2 View dated 03/11/2021 FINDINGS: Multipart fracture of the right proximal humerus with fracture involving the greater tuber osity and surgical neck. No dislocation. IMPRESSION: Comminuted right proximal humerus fracture. No dislocation.
--- NOTE | 2021-03-26 11:49 | DS ---
Date of Discharge: 03/24/2021 Disposition: Discharged to a intermediate. Physical Examination: HEENT Exam: Unremarkable. Lungs: Clear to auscultation. Heart: Sounds normal. Abdomen: Soft. Bowel sounds normal. No guarding, rigidity, tenderness, or distention. Extremity Exam: No leg edema. Discharge Medications And Instructions: 1. Continue metoprolol 25 mg 2 times a day and escitalopram 20 mg daily. 2. Take vitamin B12 500 mcg daily, folic acid 1 mg daily, Ferrocite 325 mg daily. See discharge order for other medication details. 3. Tramadol 50 mg every 6 hours as needed for pain. 4. Fall precautions, consult Physical Therapy and Occupational Therapy at intermediate. 5. Follow up with Dr. Downing next week. 6. Keep right upper extremity in a sling all the time. Laboratory Data: Labs done during this hospitalization: Last CBC from today, white count 6.5, hemoglobin 10.9, platelets 362. The lowest hemoglobin was 7.5 on 03/14/2021, and the patient received 1 unit of PRBC blood transfusion for that. When she came into the hospital, WBC was 11, hemoglobin 11.8, and platelets 162. Last chemistry from 03/22/2021, sodium 138, potassium 3.9 chloride 105, bicarb 27, BUN 10, creatinine 0.39, and glucose 83. Her B12 level was 250 and folic acid level was 2.9, which was low. Hospital Course: A 65-year-old female patient who was admitted to the hospital after she fell down and injured her right upper extremity and right hip area. Please see dictated H and P for more information. The patient was admitted with right hip intertrochanteric/greater trochanteric fracture and right humerus fracture. Dr. Downing was consulted from the Orthopedic Surgery, and he did not recommend any surgical intervention for the humerus fracture, but for the femur fracture, the patient had surgery done by Dr. Downing. Postoperatively, her condition remained stable. She started to participate with the physical therapy. Inpatient rehab was consulted, but her insurance company denied inpatient rehab stay and we went through appeal process and they still continued to deny inpatient rehab benefit, so Social Service was consulted to make arrangements for the patient to go to a custodial facility as the patient lives by herself, and she will not be able to manage on her own until at a future date and she understands and realizes that. So after all the arrangements completed, she was discharged to go to custodial facility, which is [facility]. Final Diagnoses: 1. Right hip intertrochanteric/greater trochanteric fracture with [id number] displacement. 2. Right humerus fracture, moderately displaced, involving the right humerus neck and lateral aspect of humerus head. 3. Anemia due to acute blood loss. 4. Thrombocytopenia. 5. Folic acid deficiency. 6. Hypertension. 7. Hyperlipidemia. 8. Anxiety. 9. Alcohol dependence. TARA/MODL Voice ID: [id number] Report ID: [id number] EMANI
== END 2021-03-24 15:17 | DRG 480 ==
LOC: ER 19:45 → 2ND 22:03
PROVIDERS: ADMIT Internal Medicine; ATTEND Internal Medicine
PROC: 0PSCXZZ Reposition Right Humeral Head, External Approach (ICD-10-PCS; 2021-03-12)
PROC: 0QS636Z Reposition Right Upper Femur with Intramedullary Internal Fixation Device, Percutaneous Approach (ICD-10-PCS; principal; 2021-03-12 15:00)
PROC: 30233N1 Transfusion of Nonautologous Red Blood Cells into Peripheral Vein, Percutaneous Approach (ICD-10-PCS; 2021-03-14)
DX: S42.201A Unspecified fracture of upper end of right humerus, initial encounter for closed fracture (principal); S72.141A Displaced intertrochanteric fracture of right femur, initial encounter for closed fracture; D62 Acute posthemorrhagic anemia; D64.9 Anemia, unspecified; D69.6 Thrombocytopenia, unspecified; I10 Essential (primary) hypertension; F41.9 Anxiety disorder, unspecified; F10.20 Alcohol dependence, uncomplicated; E83.42 Hypomagnesemia; E83.39 Other disorders of phosphorus metabolism; E53.8 Deficiency of other specified B group vitamins; K59.00 Constipation, unspecified; W18.30XA Fall on same level, unspecified, initial encounter; Y92.009 Unspecified place in unspecified non-institutional (private) residence as the place of occurrence of the external cause; Z20.822 Contact with and (suspected) exposure to COVID-19
CPT/HCPCS: 36415; 51702; 70450; 72170; 73530; 80048; 80053; 82607; 82746; 83735; 84100; 85014; 85018; 85025; 85610; 85730; 86850; 86900; 86901; 93005; 94010; 96374; 96375; 97110; 97112; 97116; 97162; 97530; 99285; J0690; J1100; J1650; J2250; J2270; J2405; J2704; J3010; J3475; J7050; J7120; P9016; U0003

== ENCOUNTER 2023-02-08 09:35 | Day surgery (SDC) | payer OTHER ==
[2023-02-08] MEDS ORDERED: Ringers Lactate 1,000 ML IV ONE (10:07)
[2023-02-08] MEDS ORDERED: propofoL 200 MG/20 ML VIAL IV ONE ×2 (11:34→13:33)
[2023-02-08] MEDS ORDERED: FENTANYL CITR 100 MCG/2 ML ONE (11:34)
[2023-02-08] MEDS ORDERED: MIDAZOLAM HCL 2 MG/2 ML INJ ONE (11:45)
[2023-02-08] MEDS ORDERED: LIDOCAINE 2% MPF 5 ML VIAL ONE (11:46)
[2023-02-08 16:12] VITALS: TEMP 97
[2023-02-08 16:13] VITALS: BP 105/88; O2SAT 96
--- NOTE | 2023-02-09 02:48 | OP ---
Date of Procedure: 02/08/2023 Surgeon: Latoya Boykin MD Preoperative Diagnoses: Postmenopausal bleeding, vaginal mass, possible pelvic mass. Postoperative Diagnoses: Vaginal wall erosion and superficial epithelial lesion at the left end of t he vaginal cuff, postmenopausal bleeding, vaginal mass, possible pelvic mass. Procedures Performed: Exam under anesthesia, biopsy of the vaginal wall lesion. Anesthesia: MAC. Estimated Blood Loss: Minimal. Specimens: Vaginal wall biopsy. Complications: No complications. Drains: No drains. Condition: Stable. Vaginal packing was placed for hemostasis postop. Indications: The patient is a 67-year-old who had a hysterectomy in the remote past. She has been d oing well without any bleeding. Sudden onset of bleeding that brought the patient to the office. He r sister was present by her side. She has significant medical history of dementia and memory loss. Very pleasant, able to cooperate with exam, and asking very appropriate questions. She was consented for vaginal wall mass biopsy as this was difficult to reach in the office and that also was tender f or the patient since this is a new and abnormal finding. Plan was to rule out any carcinoma or a pel constantino mass that was eroding through the vagina. Description Of Procedure: After informed consent was verified with her sister and patient herself, s he was taken back to OR, placed in supine fashion on the operating table. After anesthesia was given , she was placed in a dorsal lithotomy position using Td stirrups. Lower abdomen, vulva, vagina, and perineum were prepped and draped in a sterile fashion. The speculum was placed to expose the vag inal wall. Once this was exposed, only left end of the wall had a lesion that appeared to be very fl at, flush with the vaginal epithelial skin, slightly erosive, and the edges were raised, probably les s than 1 cm lesion on the upper and lower aspects of the scar. This was held with an Allis clamp in order for me to have some traction on this plane to shave the vaginal epithelium for the biopsy. Onc e this was done with the help of an Allis, then I used a 15 blade to shave this area in 2 spot for th e biopsy and they were all placed in 1 specimen cup in formalin and they were sent for permanent path ology. Then hemostasis was secured in this area with direct pressure. Once this was done, there was excellent hemostasis. However, vaginal packing was placed just for the safety of preventing the pat ient from worrying about bleeding. She was recovered from anesthesia and taken to PACU in stable con dition and then her sister was notified personally by me about her findings. They have a 1-week post op appointment, at which we will decide the plan. LINO Voice ID: [id number] Report ID: [id number]
== END 2023-02-08 14:18 | disposition home or self-care (01) ==
LOC: OR 09:35
PROVIDERS: ATTEND Obstetrics & Gynecology
PROC: 0UBG8ZX Excision of Vagina, Via Natural or Artificial Opening Endoscopic, Diagnostic (ICD-10-PCS; principal; 2023-02-08 14:15)
DX: N89.8 Other specified noninflammatory disorders of vagina (principal); R19.09 Other intra-abdominal and pelvic swelling, mass and lump; N95.0 Postmenopausal bleeding
CPT/HCPCS: 88305; 57421; J2704 ×2; J2001; J2250; J3010; J7120